=== PATIENT | female | born 1985 | race Caucasian/White ===

== ENCOUNTER → 2017-10-29 13:36 | Outpatient (CLI) | payer MEDICAID, SELFPAY ==
[2017-10-29 17:00] LABS: Glucose Challenge Gest 1H 50g 122 mg/dL (70-140)
[2017-10-29 17:17] LABS: Hematocrit 38.8 % (37-47); Hemoglobin 12.4 g/dl (12.0-15.0); Mean Corpuscular Hgb 26.8 pg (27.0-32.0); Mean Platelet Vol. 12.8 fl (6.2-12.0); Platelet Count 177 K/mm3 (150-450); RBC Distribution Width CV 14.9 % (11.6-14.6); RBC Distribution Width SD 44.6 fl (35.1-43.9); Red Blood Count 4.62 M/mm3 (4.2-5.4); White Blood Count 8.3 K/mm3 (4.4-11.0)
[2017-10-29 17:20] LABS: Scan Indicated on CBC? Y/N NO
== END ==
PROVIDERS: Visit Provider Obstetrics & Gynecology
DX: Z34.83 Encounter for supervision of other normal pregnancy, third trimester (principal)
CPT/HCPCS: 82950; 85027

== ENCOUNTER → 2017-11-05 17:02 | Outpatient (CLI) | payer MEDICAID, SELFPAY | PROVIDERS: Visit Provider Obstetrics & Gynecology | DX: N39.0 Urinary tract infection, site not specified (principal) | CPT/HCPCS: 87086; 87088 ==

== ENCOUNTER → 2017-12-14 09:32 | Outpatient (CLI) | payer MEDICAID, SELFPAY ==
[2017-12-14 09:53] LABS: Hematocrit 34.3 % (37-47); Hemoglobin 10.7 g/dl (12.0-15.0); Mean Corp Hgb Conc 31.2 g/gl (32-36); Mean Corpuscular Hgb 25.3 pg (27.0-32.0); Mean Corpuscular Volume 81.1 fL (81-99); Mean Platelet Vol. 12.9 fl (6.2-12.0); Platelet Count 187 K/mm3 (150-450); RBC Distribution Width CV 14.2 % (11.6-14.6); RBC Distribution Width SD 41.9 fl (35.1-43.9); Red Blood Count 4.23 M/mm3 (4.2-5.4); Scan Indicated on CBC? Y/N NO
[2017-12-14 10:48] LABS: Protein, Urine (Random) 31.2 mg/dL (<11.9)
[2017-12-14 11:02] LABS: ALB/GLOB Ratio 0.7 RATIO (0.9-2.4); AST(SGOT) 19 U/L (15-37); Alanine Aminotransfer ALT/SGPT 17 U/L (13-56); Albumin, Serum 2.7 g/dL (3.2-5.0); Alkaline Phosphatase 102 U/L (45-117); Anion Gap 10 (5-15); BUN 4 mg/dL (7-18); BUN/Creat Ratio 8.8 RATIO (10-20); Calcium,Total 8.2 mg/dL (8.5-10.1); Chloride 108 mmol/L (98-107); Creatinine, Serum 0.46 mg/dL (0.55-1.02); EST Glomerular Filtration Rate 170 mL/min (>60); Est Glom Filt Rate - Afr Amer 205 mL/min (>60); Globulin 3.7 g/dL (2.2-4.2); Glucose 90 mg/dL (74-106); Potassium 3.1 mmol/L (3.5-5.1); Protein, Total 6.4 g/dL (6.4-8.2); Sodium Level 141 mmol/L (136-145)
== END ==
PROVIDERS: Visit Provider Obstetrics & Gynecology
DX: O26.899 Other specified pregnancy related conditions, unspecified trimester (principal); R10.11 Right upper quadrant pain; R51 Headache; Z3A.00 Weeks of gestation of pregnancy not specified
CPT/HCPCS: 36415; 80053; 82570; 84156; 84550; 85027

== ENCOUNTER → 2017-12-30 13:52 | Outpatient (CLI) | payer MEDICAID, SELFPAY ==
[2017-12-30 15:04] LABS: Group B Strep DNA By PCR Negative (Negative); Internal Control PASS; Probe Check PASS; Specimen Processing Control PASS
== END ==
PROVIDERS: Visit Provider Obstetrics & Gynecology
DX: Z36.85 Encounter for antenatal screening for Streptococcus B (principal)
CPT/HCPCS: 87081; 87653

== ENCOUNTER 2017-12-31 07:35 | Inpatient (IN) | payer MEDICAID, SELFPAY ==
[2017-12-31 05:43] VITALS: BMI 38.9
[2017-12-31] MEDS: Lactated Ringers 1,000 ML 50 ML IV ×3 (08:10→21:00)
[2017-12-31 08:35] LABS: Hematocrit 33.1 % (37-47); Hemoglobin 10.5 g/dl (12.0-15.0); Mean Corp Hgb Conc 31.7 g/gl (32-36); Mean Corpuscular Hgb 25.9 pg (27.0-32.0); Mean Corpuscular Volume 81.5 fL (81-99); Mean Platelet Vol. 13.7 fl (6.2-12.0); Platelet Count 160 K/mm3 (150-450); RBC Distribution Width CV 15.3 % (11.6-14.6); RBC Distribution Width SD 43.2 fl (35.1-43.9); Red Blood Count 4.06 M/mm3 (4.2-5.4)
[2017-12-31 08:36] LABS: Scan Indicated on CBC? Y/N NO
[2017-12-31] MEDS: Acetaminophen 325 MG Tablet PO (11:08)
[2017-12-31] MEDS: Oxytocin 30 units/NS 500 ml 30 UNITS/500 ML IV.SOLN IV (11:35)
--- NOTE | 2017-12-31 15:00 | PCM.PN.BLA ---
Progress Note LABOR PROGRESS NOTE No complaints. AVSS GEN - NAD, AAO x 3 FHR 140, moderate variability, + accelerations, no decelerations SVE 4.5-5/75/-2 TOCO 4/10 min A/P: 32yo @ 37 1/7wga in labor with pitocin augmentation, Cat I FHR -Amniotomy performed with clear fluid -Continue pitocin as tolerated by mother and fetus
[2017-12-31] MEDS: fentaNYL-bupivacaine (epidural) 100 ML BAG EPIDURAL (16:10)
--- NOTE | 2017-12-31 18:12 | PCM.PN.BLA ---
Progress Note LABOR PROGRESS NOTE No complaints. Comfortable with epidural. AVSS GEN - NAD, AAO x 3 FHR 130, moderate variability, + late deceleration, non- recurrent SVE 10/100/+1 station per ZHOU Dee TOCO 4/10 min A/P: 32yo @ 37 1/7wga in labor on pitocin, Cat II FHR -Continue pitocin as tolerated by mother and fetus -Continue in second stage with pushing efforts -Maternal and statuses overall reassuring
[2017-12-31 20:00] VITALS: BP 121/64
--- NOTE | 2017-12-31 20:00 | PCM.PN.BLA ---
Progress Note Baseline 135, moderate variability with recurrent variable decelerations with contractions and prolonged deceleration x 4.5 minutes nadiring to 70s bpm. SVE FD/0 station with caput extending to +3. Fetus in OA. [place] 4/ 10 min. ISE placed. Will monitor closely.
[2017-12-31] MEDS: Ondansetron 4 MG/2 ML Vial IV (20:58)
--- NOTE | 2017-12-31 21:13 | PCM.PN.BLA ---
Progress Note LABOR PROGRESS NOTE Relates she is fatigued from pushing. AVSS GEN - NAD, AAO x 3 FHR prolonged deceleration to 70s bpm, recovered to 120, moderate variability, + accelerations, no further decelerations TOCO 4/10 min SVE FD/0 station A/P: 32yo @ 37 1/7wga with arrest of descent, Cat I-II FHR -López Priyanka maneuver performed with no significant descent -Given patient has pushed x approximately 3 hours with almost 1 hour of labor down and fatigue, not candidate for operative vaginal delivery at this time. Advise - reviewed surgical risks including pain, bleeding including possible hematoma, hemorrhage, possible transfusion or hysterectomy, bowel or bladder injury, VTE, ileus, bowel obstruction, scarring, laceration, TTN, allergic reaction. Also discussed continued pushing for additional hour however reviewed my experience an exam suggest unlikely to make significant progress towards vaginal delivery. Patient and family given opportunity to ask questions and questions answered to their satisfaction. Patient desires to proceed. Anesthesiology notified.
[2017-12-31] MEDS: Sodium Citrate/Citric Acid 30 ML UDC PO (21:15)
[2017-12-31] MEDS: Cefazolin 2 GM in 0.9% Normal Saline 100 ML IV (21:25)
--- NOTE | 2017-12-31 21:29 | PN_ITS ---
Progress Note Baseline 135, moderate variability with recurrent variable decelerations with contractions and prolonged deceleration x 4.5 minutes nadiring to 70s bpm. SVE FD/0 station with caput extending to +3. Fetus in OA. [place] 4/ 10 min. ISE placed. Will monitor closely.
[2017-12-31] MEDS: Methylergonovine 0.2 MG/ML Ampul IM (22:15)
--- NOTE | 2017-12-31 23:02 | PCM.IMED.CSR ---
- Problem List (1) 37 weeks gestation of Status: Acute (2) Arrest of descent, delivered, current hospitalization Status: Acute V-Zvccrzl-Ewszznmcv PostOp Date of Procedure: 12/31/17 Primary Surgeon/Physician: Brandy Lopez, manager zone: Nancy Almeida Pre-op Diagnosis: Arrrest of Descent Post-Op Diagnosis: Arrrest of Descent Surgery/Procedure Performed: Primary low transverse Section Description of Surgical Findings:: significant scarring of subcutaneous tissue and lower abdominal cavity. Estimated Blood Loss: 700 mL Specimens Removed: placenta Drain: Ram to straight drain Type of Anesthesia: Epidural - Admit VTE Documentation VTE Present on Admission: No VTE Mechan Device Prophylaxis: SCD's VTE Pharm Prophylaxis ordered?: No
--- NOTE | 2017-12-31 23:07 | OP.PN_ITS ---
- Problem List (1) 37 weeks gestation of Status: Acute (2) Arrest of descent, delivered, current hospitalization Status: Acute J-Vtysnpo-Wsysdwxdg PostOp Date of Procedure: 12/31/17 Primary Surgeon/Physician: Brandy Lopez, personalized living manager nurse: Nancy Almeida Pre-op Diagnosis: Arrrest of Descent Post-Op Diagnosis: Arrrest of Descent Surgery/Procedure Performed: Primary low transverse Section Description of Surgical Findings:: significant scarring of subcutaneous tissue and lower abdominal cavity. Estimated Blood Loss: 700 mL Specimens Removed: placenta Drain: Ram to straight drain Type of Anesthesia: Epidural - Admit VTE Documentation VTE Present on Admission: No VTE Mechan Device Prophylaxis: SCD's VTE Pharm Prophylaxis ordered?: No
--- NOTE | 2017-12-31 23:07 | PCM.OB.CSR ---
- Problem List (1) 37 weeks gestation of Status: Acute (2) Arrest of descent, delivered, current hospitalization Status: Acute Delivery Classification: ANTONIO Final DEMARCO: 01/20/18 Gestational age: 37 Weeks and 1 Days [place] doctor who attended delivery (if requested by OB): Nuvia Malave Indications: 32yo G1 at 37 1/7wga admitted in latent labor. She was augmented with pitocin and progressed to FD/0 station. She pushed for approximately 3 hours with no descent. She was advised to proceed with section. Risks, benefits, indications of procedure were reviewed. Informed consent was obtained. Indications for : Arrrest of Descent Description of Procedure: Significant scarring of subcutaneous tissue and lower abdominal cavity. The patient was taken to the operating room and spinal analgesia was administered. She is placed in a dorsal supine position with left lateral tilt. The perineum and abdomen were prepped and draped in sterile fashion. And the spinal was found to be adequate. A Pfannenstiel incision was made using a scalpel and brought down to incise the subcutaneous tissue and rectus fascia at the midline. Subcutaneous tissue was bluntly dissected off the fascia laterally. The fascial incision was dissected laterally and cephalad using curved Cornejo scissors. The superior leaflet of the rectus fascia was grasped using Monisha clamps and was sharply dissected from the underlying rectus muscle due to significant adhesion and thickening. In a similar fashion the inferior rectus fascia was dissected from the underlying muscle. The rectus muscles were bluntly at the midline however the left rectus was significantly fibrosed thus was transected using the Bovie for adequate exposure. The peritoneum was identified and entered [sharply]. The bladder blade was placed into the abdomen and the vesicouterine peritoneal fold identified. The fold was incised and a bladder flap created. Bladder blade was then repositioned to the abdomen. A low transverse hysterotomy was made using the [Metzenbaum scissors] to level of the membranes. The hysterotomy was extended bluntly cephalad and caudad. The membranes were then ruptured revealing clear fluid. The head was elevated and brought to the level of the hysterotomy and the infant delivered revealing vigorous [male] infant. The cord was doubly clamped and cut after 30 seconds. The infant was passed to awaiting [nursery personnel and Pediatric hospitalist]. The placenta was [expressed] from the uterus and appeared intact on inspection. The uterus was cleared of debris. IV pitocin and IM methergine were given for uterine atony. The hysterotomy was then repaired using 0 Vicryl running lock suture. A second imbricating layer was also placed for additional hemostasis. There was improvement of uterine tone. Henry was placed for additional hemostasis. The bladder blade was removed. The anterior cul-de-sac was cleared of debris. A perforating right inferior epigastric vein was bleeding, this was coagulated with hemostasis attained. The peritoneum and rectus muscles were reapproximated using 2-0 Vicryl running suture. The rectus fascia was closed using 0 Vicryl running suture. The patient complained of right sided pain thus 10cc local 1% lidocaine was administered subcutaneously. The subcutaneous tissue was sponge irrigated and small capillary bleeding controlled using the Bovie device. The subcutaneous tissue was reapproximated using 2-0 Vicryl. The skin was closed using 4-0 Monocryl subcuticularly by the IRISH MOSS BLEACHER. This was followed by Cavilon and a Mepilex occlusive dressing was placed over the incision. The fundus was firm. The patient was then transferred to the recovery room without complication. Sponge, instrument, and needle counts were correct ?2. Amniotic Membrane Rupture Type: Artificial Amniotic Fluid Description: Clear Placenta Disposition: [facility] Specimen(s) sent to pathology: placenta Drain: Ram to straight drain Cord Entanglement: None Cord Vessel Description: 3 Vessels Esitmated Blood Loss (ml): 700 Infant Gender: Male (1 minute): 8 (5 minute): 9 Delayed cord clamping: Yes Pre-op Antibiotic Given: Ancef 2 grams IV x1 Pt instructed on risks of surgery: Bleeding, Anesthesia Risks, Infection, Need for Future C-Sections, Failure Rate of 1 to 2%, Injury to surrounding structure(s) including bowel and bladder Complications: None - Admit VTE Documentation VTE Present on Admission: No VTE Mechan Device Prophylaxis: SCD's VTE Pharm Prophylaxis ordered?: No
--- NOTE | 2017-12-31 23:23 | OP.PCM_ITS ---
- Problem List (1) 37 weeks gestation of Status: Acute (2) Arrest of descent, delivered, current hospitalization Status: Acute Delivery Classification: ANTONIO Final DEMARCO: 01/20/18 Gestational age: 37 Weeks and 1 Days [place] doctor who attended delivery (if requested by OB): Nuvia Malave Indications: 32yo G1 at 37 1/7wga admitted in latent labor. She was augmented with pitocin and progressed to FD/0 station. She pushed for approximately 3 hours with no descent. She was advised to proceed with section. Risks, benefits, indications of procedure were reviewed. Informed consent was obtained. Indications for : Arrrest of Descent Description of Procedure: Significant scarring of subcutaneous tissue and lower abdominal cavity. The patient was taken to the operating room and spinal analgesia was administered. She is placed in a dorsal supine position with left lateral tilt. The perineum and abdomen were prepped and draped in sterile fashion. And the spinal was found to be adequate. A Pfannenstiel incision was made using a scalpel and brought down to incise the subcutaneous tissue and rectus fascia at the midline. Subcutaneous tissue was bluntly dissected off the fascia laterally. The fascial incision was dissected laterally and cephalad using curved Cornejo scissors. The superior leaflet of the rectus fascia was grasped using Monisha clamps and was sharply dissected from the underlying rectus muscle due to significant adhesion and thickening. In a similar fashion the inferior rectus fascia was dissected from the underlying muscle. The rectus muscles were bluntly at the midline however the left rectus was significantly fibrosed thus was transected using the Bovie for adequate exposure. The peritoneum was identified and entered [sharply]. The bladder blade was placed into the abdomen and the vesicouterine peritoneal fold identified. The fold was incised and a bladder flap created. Bladder blade was then repositioned to the abdomen. A low transverse hysterotomy was made using the [Metzenbaum scissors] to level of the membranes. The hysterotomy was extended bluntly cephalad and caudad. The membranes were then ruptured revealing clear fluid. The head was elevated and brought to the level of the hysterotomy and the infant delivered revealing vigorous [male] infant. The cord was doubly clamped and cut after 30 seconds. The infant was passed to awaiting [nursery personnel and Pediatric hospitalist]. The placenta was [ expressed] from the uterus and appeared intact on inspection. The uterus was cleared of debris. IV pitocin and IM methergine were given for uterine atony. The hysterotomy was then repaired using 0 Vicryl running lock suture. A second imbricating layer was also placed for additional hemostasis. There was improvement of uterine tone. Henry was placed for additional hemostasis. The bladder blade was removed. The anterior cul-de-sac was cleared of debris. A perforating right inferior epigastric vein was bleeding, this was coagulated with hemostasis attained. The peritoneum and rectus muscles were reapproximated using 2-0 Vicryl running suture. The rectus fascia was closed using 0 Vicryl running suture. The patient complained of right sided pain thus 10cc local 1% lidocaine was administered subcutaneously. The subcutaneous tissue was sponge irrigated and small capillary bleeding controlled using the Bovie device. The subcutaneous tissue was reapproximated using 2-0 Vicryl. The skin was closed using 4-0 Monocryl subcuticularly by the DEVELOPMENTAL TRAINING COUNSELOR. This was followed by Cavilon and a Mepilex occlusive dressing was placed over the incision. The fundus was firm. The patient was then transferred to the recovery room without complication. Sponge, instrument, and needle counts were correct ?2. Amniotic Membrane Rupture Type: Artificial Amniotic Fluid Description: Clear Placenta Disposition: [facility] Specimen(s) sent to pathology: placenta Drain: Ram to straight drain Cord Entanglement: None Cord Vessel Description: 3 Vessels Esitmated Blood Loss (ml): 700 Gender: Male (1 minute): 8 (5 minute): 9 Delayed cord clamping: Yes Pre-op Antibiotic Given: Ancef 2 grams IV x1 Pt instructed on risks of surgery: Bleeding, Anesthesia Risks, Infection, Need for Future C-Sections, Failure Rate of 1 to 2%, Injury to surrounding structure( s) including bowel and bladder Complications: None - Admit VTE Documentation VTE Present on Admission: No VTE Mechan Device Prophylaxis: SCD's VTE Pharm Prophylaxis ordered?: No
[2017-12-31 23:25] VITALS: BP 121/64; BP 140/82; PULSE 85; RESP 18; TEMP 37.4; O2SAT 98
--- NOTE | 2017-12-31 23:33 | PCM.DCCSEC ---
Discharge Diet: No Restrictions Discharge Activity: Return to Normal Activity, May not drive while taking narcotic pain medications., May Shower May resume sexual activity in: 6 weeks Lifting Restrictions: 10 lb Call your doctor if your incision/area has: Continuous Slow Oozing, Sudden Increased Bleeding Call your doctor if you observe: Fever of 101 or Higher, Inability to urinate, Inability to have a bowel movement, Using more than one pad per hour, Shortness of breath, Chest pain, Calf discomfort, Uncontrolled pain Suture Line Care: Avoid Pulling/Pushing, Avoid Pinching/Bending Additional Instructions: If you experience any of the following, contact your healthcare provider. Bleeding that soaks a pad every hour for 2 hours Fever 100.4 or higher Unrelieved incision or abdominal pain Swelling, redness, discharge or bleeding from your incision or episiotomy site Your incision begins to separate Problems urinating (including inability to urinate or burning while urinating). Visual changes Severe headache Flu-like symptoms Pain or redness in one of both of your breasts Pain, warmth, tenderness or swelling in your legs, especially the calf area Frequent nausea and vomiting Symptoms of depression or anxiety If you experience any of the following, call 911 or go to the nearest Emergency Room. Chest pain Problems breathing Seizure activity Partial or complete paralysis of a body part, slurred speech, weakness or drooping of the face, or a sudden inability to walk or hold your balance Allergies/Adverse Reactions: Allergies citalopram hydrobromide [From Celexa] Allergy (Verified 10/12/17 16:27) Shortness of breath latex Allergy (Verified 10/12/17 16:27) Hives codeine Adverse Reaction (Verified 10/12/17 16:27) Vomiting Medications to take at Discharge Folic Acid 0.4 mg PO DAILY 10/08/17 Nifedipine 10 mg PO Q4H #6 cap 10/13/17 Docusate Sodium [Colace] 100 mg PO BID PRN PRN #60 cap 12/31/17 Naproxen 250 mg PO BID PRN #30 tab 12/31/17 Oxycodone [Oxyir] 1 - 2 tab PO Q4H PRN PRN 3 Days #28 tablet 12/31/17 The following prescriptions were given: Oxycodone [Oxyir] 1 - 2 tab PO Q4H PRN PRN 3 Days #28 tablet PRN Reason: Pain Docusate Sodium [Colace] 100 mg PO BID PRN PRN #60 cap PRN Reason: Constipation Naproxen 250 mg PO BID PRN #30 tab PRN Reason: Pain Follow-Up: Call to make an appointment with your doctor for an incision check in 1-2 weeks. You will also need a 6 week post- follow up appointment. Please Follow Up With: Brandy Loepz MD When: 1 week Primary Care Physician: [facility] ,Out of [Primary Care Provider] -
--- NOTE | 2017-12-31 23:41 | DCINST_ITS ---
Discharge Diet: No Restrictions Discharge Activity: Return to Normal Activity, May not drive while taking narcotic pain medications., May Shower May resume sexual activity in: 6 weeks Lifting Restrictions: 10 lb Call your doctor if your incision/area has: Continuous Slow Oozing, Sudden Increased Bleeding Call your doctor if you observe: Fever of 101 or Higher, Inability to urinate, Inability to have a bowel movement, Using more than one pad per hour, Shortness of breath, Chest pain, Calf discomfort, Uncontrolled pain Suture Line Care: Avoid Pulling/Pushing, Avoid Pinching/Bending Additional Instructions: If you experience any of the following, contact your healthcare provider. * Bleeding that soaks a pad every hour for 2 hours * Fever 100.4 or higher * Unrelieved incision or abdominal pain * Swelling, redness, discharge or bleeding from your incision or episiotomy site * Your incision begins to separate * Problems urinating (including inability to urinate or burning while urinating) . * Visual changes * Severe headache * Flu-like symptoms * Pain or redness in one of both of your breasts * Pain, warmth, tenderness or swelling in your legs, especially the calf area * Frequent nausea and vomiting * Symptoms of depression or anxiety If you experience any of the following, call 911 or go to the nearest Emergency Room. * Chest pain * Problems breathing * Seizure activity * Partial or complete paralysis of a body part, slurred speech, weakness or drooping of the face, or a sudden inability to walk or hold your balance Allergies/Adverse Reactions: Allergies citalopram hydrobromide [From Celexa] Allergy (Verified 10/12/17 16:27) Shortness of breath latex Allergy (Verified 10/12/17 16:27) Hives codeine Adverse Reaction (Verified 10/12/17 16:27) Vomiting Medications to take at Discharge Folic Acid 0.4 mg PO DAILY 10/08/17 Nifedipine 10 mg PO Q4H #6 cap 10/13/17 Docusate Sodium [Colace] 100 mg PO BID PRN PRN #60 cap 12/31/17 Naproxen 250 mg PO BID PRN #30 tab 12/31/17 Oxycodone [Oxyir] 1 - 2 tab PO Q4H PRN PRN 3 Days #28 tablet 12/31/17 The following prescriptions were given: Oxycodone [Oxyir] 1 - 2 tab PO Q4H PRN PRN 3 Days #28 tablet PRN Reason: Pain Docusate Sodium [Colace] 100 mg PO BID PRN PRN #60 cap PRN Reason: Constipation Naproxen 250 mg PO BID PRN #30 tab PRN Reason: Pain Follow-Up: Call to make an appointment with your doctor for an incision check in 1-2 weeks. You will also need a 6 week post- follow up appointment. Please Follow Up With: Brandy Lopez MD When: 1 week Primary Care Physician: [facility] ,Out of [Primary Care Provider] -
[2017-12-31 23:45] VITALS: BP 121/64; BP 138/72; PULSE 95; RESP 20; O2SAT 96
[2018-01-01] VITALS (25 sets, daily range): BP systolic 107–150; BP diastolic 46–92; PULSE 76–108; RESP 15–20; TEMP 36.7–37.6; O2SAT 96–100
[2018-01-01] MEDS: Ketorolac 30 MG/ML Syringe IV ×4 (00:26→18:30)
[2018-01-01 06:10] LABS: Hematocrit 27.3 % (37-47); Hemoglobin 8.8 g/dl (12.0-15.0); Mean Corp Hgb Conc 32.2 g/gl (32-36); Mean Corpuscular Hgb 25.7 pg (27.0-32.0); Mean Corpuscular Volume 79.8 fL (81-99); Mean Platelet Vol. 11.2 fl (6.2-12.0); Platelet Count 132 K/mm3 (150-450); RBC Distribution Width CV 14.8 % (11.6-14.6); RBC Distribution Width SD 42.8 fl (35.1-43.9); Red Blood Count 3.42 M/mm3 (4.2-5.4)
[2018-01-01 06:11] LABS: Scan Indicated on CBC? Y/N NO
[2018-01-01] MEDS: Lactated Ringers 1,000 ML 100 ML IV ×2 (08:32→17:41)
--- NOTE | 2018-01-01 09:19 | PCM.PN.OB ---
Patient Problems: Active and Suspected Problems delivery delivered (Acute) 37 weeks gestation of (Acute) Arrest of descent, delivered, current hospitalization (Acute) Subjective: Patient without complaints. Tolerating diet well. Breast-feeding being attempted. Denies flatus. - Physical Exam Vital Signs AF, VSS Temp Pulse Resp BP Pulse Ox 99.4 F H 108 H 18 115/71 96 01/01/18 05:31 01/01/18 05:31 01/01/18 06:30 01/01/18 05:31 01/01/18 06:30 Oxygen Delivery Method Room Air Weight: 213 lb 2.992 oz Body Mass Index (BMI) 38.9 Intake and Output for Last 24 Hours 12/30/17 12/31/17 01/01/18 23:59 23:59 23:59 Intake Total 450 / 450 1498 / 1498 Output Total 750 / 750 Balance 450 / 450 748 / 748 Laboratory Tests Past 24 Hrs 12/31/17 01/01/18 08:10 05:55 WBC 10.0 RBC 3.42 L Hgb 8.8 L Hct 27.3 L MCV 79.8 L MCH 25.7 L MCHC 32.2 RDW 14.8 H RDW Differential 42.8 Plt Count 132 L MPV 11.2 Blood Type A POSITIVE Antibody Screen NEGATIVE Wound is clean, dry, intact covered by an occlusive dressing. Good urine output. Hemoglobin okay. Medical Necessity - Tobacco Use Smoking Status: Never smoker Assessment/Plan Active and Suspected Problems delivery delivered (Acute) 37 weeks gestation of (Acute) Arrest of descent, delivered, current hospitalization (Acute) Doing well postoperative day #1 . Continuing present care.
--- NOTE | 2018-01-01 14:23 | CASEMGMT ---
Social Work Referral Date: 12/31/17 Date of Assessment: 12/31/17 Reason for Consult: Community Resources and support Informant: Mother of baby (MOB), Father of baby (FOB), Nursing, and chart Personal Status Mentation: (A&Ox3?): MOB oriented x3 Present during assessment: MOB, FOB, and Infant Hx : 3 Hx Para: 0 Gender: M Infant Name: Kar Bernardo (1min): 8 (5min): 9 Care: Adequate Alleged father: Kris Bernardo Alleged father involved: Yes Length of Relationship with alleged father of baby: MOB and FOB have been for 3 years. Number of Children in the home: This is first infant for MOB and FOB Custody Comments: None Living Arrangements: MOB and FOB live in private home. 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 FOB is an EMT but was recently diagnosed with cancer 2 months ago and is currently undergoing treatments in [place], [place]. FOB not working at this time either. MOB and FOB depending on family financially and planning to apply for social security disability but are unable to apply until May. This director social welfare also giving MOB and FOB information about Monae Malik patient navigator. Family Dynamics/Relationships: MOB reporting to have positive supports from both maternal and paternal grandparents and to have a positive relationship with FOB. Supports: MOB reporting to have lots of support. Substance Abuse Hx and Current Pattern of Use Comment: MOB denies any Alcohol, Methamphetamine, Tobacco, Cocaine, Marijuana, Prescriptions Drugs, or Heroin usage. Mental Health Hx and Current Status Comment: MOB denies any history of depression/anxiety. MOB reporting no current depression or anxiety. Items/Skills List for Infants Care Supplies: MOB reporting to have all needed supplies for both breast and bottle feeding. MOB planning to do both as MOB plans to go with FOB to [place] for next chemo treatment and that will be staying with grandparents. Bonding With Infant: MOB and FOB reporting to be bonding with . Observed Maternal/Paternal Child interaction: MOB not holding during assessment but gazing at infant often. FOB holding infant during assessment and showed appropriate support of infants head and body. Emotional Assessment: MOB presenting as tired as could be seen through MOB struggling to keep eyes open during assessment. Offered to return later but MOB was able to then sit up better and wake up to complete assessment. MOB reporting to have not slept much last night. MOB presenting with a positive affect and was engaged in conversation after waking up. FOB was also engaged in conversation. MOB and FOB thanking this socia worker for information about supports in the community for individuals diagnosed with cancer along with other community services this director social welfare provided MOB and FOB with. Emotional support offered throughout assessment. Resources JFS: [facility]: Already connected People to People: N/A Community Action: N/A Help Me Grow: Not interested in a referral at this time. Children Protective Services Hx: N/A Transportation: No transportation concerned expressed . Comments: MOB given information about [facility], safe sleeping, soothing tips and tricks, depression, Help Me Grow. Intervention: None at this time. Plan: Infant to discharge home with MOB and FOB. FOB to begin Chemo treatments again next week. FOB putting Chemo treatments on hold this week to be able to be with MOB and infant. Jia DONIS, PCB DESIGNER
[2018-01-02] MEDS: Ketorolac 30 MG/ML Syringe IV ×4 (00:07→18:17)
--- NOTE | 2018-01-02 01:13 | NURSING ---
Patient up to bathroom, lamas removed, steady on feet, in shower, pericare complete, SCDs, and pulse ox removed. Toradol given patient denies further needs at this time.
[2018-01-02 03:00] VITALS: BP 121/73; PULSE 98; RESP 16; TEMP 36.6; O2SAT 100
--- NOTE | 2018-01-02 07:56 | PCM.PN.OB ---
Patient Problems: Active and Suspected Problems delivery delivered (Acute) 37 weeks gestation of (Acute) Arrest of descent, delivered, current hospitalization (Acute) Subjective: Patient without complaints. Tolerating diet well. Breast-feeding going well. Positive flatus. Desires to stay until tomorrow. - Physical Exam Vital Signs AF, VSS Temp Pulse Resp BP Pulse Ox 98 F 98 16 121/73 H 100 01/02/18 03:00 01/02/18 03:00 01/02/18 03:00 01/02/18 03:00 01/02/18 03:00 Oxygen Delivery Method Room Air Weight: 213 lb 2.992 oz Body Mass Index (BMI) 38.9 Intake and Output for Last 24 Hours 12/31/17 01/01/18 01/02/18 23:59 23:59 23:59 Intake Total 450 / 450 4641 / 4641 Output Total 3150 / 3150 700 / 700 Balance 450 / 450 1491 / 1491 -700 / -700 Good urine output. Medical Necessity - Tobacco Use Smoking Status: Never smoker Assessment/Plan Active and Suspected Problems delivery delivered (Acute) 37 weeks gestation of (Acute) Arrest of descent, delivered, current hospitalization (Acute) Doing well. Continuing present care. Anticipate release tomorrow.
[2018-01-02 08:13] VITALS: BP 117/71; PULSE 108; RESP 18; TEMP 36.7; O2SAT 97
[2018-01-02] MEDS: 0.9% Saline Lock 10 ML Syringe IV ×2 (12:10→18:17)
[2018-01-02 14:29] VITALS: BP 125/72; PULSE 105; RESP 18; TEMP 36.8; O2SAT 100
[2018-01-02 18:23] VITALS: TEMP 37.8
[2018-01-02] MEDS: Acetaminophen 500 MG Tablet 1000 MG PO (18:38)
[2018-01-03 01:05] VITALS: BP 127/78; PULSE 87; RESP 18; TEMP 36.6; O2SAT 98
[2018-01-03] MEDS: Naproxen 250 MG Tablet PO (02:54)
--- NOTE | 2018-01-03 08:15 | PCM.PN.OB ---
Patient Problems: Active and Suspected Problems 37 weeks gestation of (Acute) Arrest of descent, delivered, current hospitalization (Acute) Subjective: doing well. OOB and ambulating without difficulty. Had a bowel movement. Lochia scant. No complaints. Objective: AVSS - Physical Exam General: Alert, Oriented x3, Cooperative, No apparent distress HEENT: Atraumatic, Normocephalic Lungs: Clear to auscultation, Normal air movement Cardiovascular: Regular rate, Regular Rhythm, Normal S1, Normal S2 Abdomen: Bowel Sounds Present, Soft, Non Tender, Non-Distended, - - Incision c/d/i and nontender Extremities: No edema, No Calf Tenderness Neurological: Neuro grossly intact Psych/Mental Status: Normal Affect, Appropriate, Alert and oriented to time, place, person, mood and affect Vital Signs Temp Pulse Resp BP Pulse Ox 97.8 F 91 18 127/78 H 99 01/03/18 09:00 01/03/18 09:00 01/03/18 09:00 01/03/18 09:00 01/03/18 09:00 Oxygen Delivery Method Room Air Weight: 96.7 kg Body Mass Index (BMI) 38.9 Intake and Output for Last 24 Hours 01/01/18 01/02/18 01/03/18 23:59 23:59 23:59 Intake Total 4641 / 4641 Output Total 3150 / 3150 1300 / 1300 Balance 1491 / 1491 -1300 / -1300 Medical Necessity - Tobacco Use Smoking Status: Never smoker Assessment/Plan Active and Suspected Problems 37 weeks gestation of (Acute) Arrest of descent, delivered, current hospitalization (Acute) 32yo POD#3 s/p PLTCS doing well. -Rh positive -Rubella immune - -d/c home today
[2018-01-03 09:00] VITALS: BP 127/78; PULSE 91; RESP 18; TEMP 36.6; O2SAT 99
--- NOTE | 2018-01-03 11:19 | PN.OBGYN_ITS ---
Patient Problems: Active and Suspected Problems 37 weeks gestation of (Acute) Arrest of descent, delivered, current hospitalization (Acute) Subjective: doing well. OOB and ambulating without difficulty. Had a bowel movement. Lochia scant. No complaints. Objective: AVSS - Physical Exam General: Alert, Oriented x3, Cooperative, No apparent distress HEENT: Atraumatic, Normocephalic Lungs: Clear to auscultation, Normal air movement Cardiovascular: Regular rate, Regular Rhythm, Normal S1, Normal S2 Abdomen: Bowel Sounds Present, Soft, Non Tender, Non-Distended, - - Incision c/d /i and nontender Extremities: No edema, No Calf Tenderness Neurological: Neuro grossly intact Psych/Mental Status: Normal Affect, Appropriate, Alert and oriented to time, place, person, mood and affect Vital Signs Temp Pulse Resp BP Pulse Ox 97.8 F 91 18 127/78 H 99 01/03/18 09:00 01/03/18 09:00 01/03/18 09:00 01/03/18 09:00 01/03/18 09:00 Oxygen Delivery Method Room Air Weight: 96.7 kg Body Mass Index (BMI) 38.9 Intake and Output for Last 24 Hours 01/01/18 01/02/18 01/03/18 23:59 23:59 23:59 Intake Total 4641 / 4641 Output Total 3150 / 3150 1300 / 1300 Balance 1491 / 1491 -1300 / -1300 Medical Necessity - Tobacco Use Smoking Status: Never smoker Assessment/Plan Active and Suspected Problems 37 weeks gestation of (Acute) Arrest of descent, delivered, current hospitalization (Acute) 32yo POD#3 s/p PLTCS doing well. -Rh positive -Rubella immune - -d/c home today
--- NOTE | 2018-01-03 11:19 | PCM.DC.SUM ---
Discharge Date and Diagnosis - Problem List Patient Problems: Active and Suspected Problems 37 weeks gestation of (Acute) Arrest of descent, delivered, current hospitalization (Acute) Date of Admission: 01/01/17 Date of Discharge: 01/03/18 - Primary Discharge Diagnosis Active and Suspected Problems 37 weeks gestation of (Acute) Arrest of descent, delivered, current hospitalization (Acute) - Secondary Discharge Diagnosis Chronic Problems Hypercoagulable state (Chronic) Hospital Course and Treatment Operations: - - section Summary of Care Provided: The patient is a 32 year old F 1 admitted at 37 1/7 weeks gestation in latent labor. She received pitocin augmentation and progressed to FD. She underwent section for arrest of descent. Her post-operative course was unremarkable. She was discharged to home on post-op day #3. Discharge Diet: No Restrictions Discharge Activity: Return to Normal Activity, May not drive while taking narcotic pain medications., May Shower May resume sexual activity in: 6 weeks Call your doctor if your incision/area has: Continuous Slow Oozing, Sudden Increased Bleeding Call your doctor if you observe: Fever of 101 or Higher, Inability to urinate, Inability to have a bowel movement, Using more than one pad per hour, Shortness of breath, Chest pain, Calf discomfort, Uncontrolled pain Suture Line Care: Avoid Pulling/Pushing, Avoid Pinching/Bending Home Medications: Medications to take at Discharge Folic Acid 0.4 mg PO DAILY 10/08/17 Nifedipine 10 mg PO Q4H #6 cap 10/13/17 Docusate Sodium [Colace] 100 mg PO BID PRN PRN #60 cap 12/31/17 Naproxen 250 mg PO BID PRN #30 tab 12/31/17 Oxycodone [Oxyir] 1 - 2 tab PO Q4H PRN PRN 3 Days #28 tablet 12/31/17 Following Prescrptions Were Given to Patient: Oxycodone [Oxyir] 1 - 2 tab PO Q4H PRN PRN 3 Days #28 tablet PRN Reason: Pain Docusate Sodium [Colace] 100 mg PO BID PRN PRN #60 cap PRN Reason: Constipation Naproxen 250 mg PO BID PRN #30 tab PRN Reason: Pain Primary Care Physician: [facility] ,Out of [Primary Care Provider] - Please Follow Up With: Brandy Lopez MD When: 1 week Medical Necessity - Tobacco Use Smoking Status: Never smoker Tobacco Use: Non-smoker Meaningful Use Info Meaningful Use Diagnoses (Choose all that apply): None applicable
[2018-01-03 12:19] VITALS: BP 128/79; PULSE 91; RESP 16; TEMP 36.9; O2SAT 100
--- NOTE | 2018-01-03 13:00 | DCINST_ITS ---
Discharge Diet: No Restrictions Discharge Activity: Return to Normal Activity, May not drive while taking narcotic pain medications., May Shower May resume sexual activity in: 6 weeks Call your doctor if your incision/area has: Continuous Slow Oozing, Sudden Increased Bleeding Call your doctor if you observe: Fever of 101 or Higher, Inability to urinate, Inability to have a bowel movement, Using more than one pad per hour, Shortness of breath, Chest pain, Calf discomfort, Uncontrolled pain Suture Line Care: Avoid Pulling/Pushing, Avoid Pinching/Bending Additional Instructions: If you experience any of the following, contact your healthcare provider. * Bleeding that soaks a pad every hour for 2 hours * Fever 100.4 or higher * Unrelieved incision or abdominal pain * Swelling, redness, discharge or bleeding from your incision or episiotomy site * Your incision begins to separate * Problems urinating (including inability to urinate or burning while urinating) . * Visual changes * Severe headache * Flu-like symptoms * Pain or redness in one of both of your breasts * Pain, warmth, tenderness or swelling in your legs, especially the calf area * Frequent nausea and vomiting * Symptoms of depression or anxiety If you experience any of the following, call 911 or go to the nearest Emergency Room. * Chest pain * Problems breathing * Seizure activity * Partial or complete paralysis of a body part, slurred speech, weakness or drooping of the face, or a sudden inability to walk or hold your balance Take a multivitamin daily. Allergies/Adverse Reactions: Allergies citalopram hydrobromide [From Celexa] Allergy (Verified 10/12/17 16:27) Shortness of breath latex Allergy (Verified 10/12/17 16:27) Hives codeine Adverse Reaction (Verified 10/12/17 16:27) Vomiting Medications to take at Discharge Docusate Sodium [Colace] 100 mg PO BID PRN PRN #60 cap 12/31/17 Naproxen 250 mg PO BID PRN #30 tab 12/31/17 Oxycodone [Oxyir] 1 - 2 tab PO Q4H PRN PRN 3 Days #28 tablet 12/31/17 The following prescriptions were given: Oxycodone [Oxyir] 1 - 2 tab PO Q4H PRN PRN 3 Days #28 tablet PRN Reason: Pain Docusate Sodium [Colace] 100 mg PO BID PRN PRN #60 cap PRN Reason: Constipation Naproxen 250 mg PO BID PRN #30 tab PRN Reason: Pain Follow-Up: Call to make an appointment with your doctor for an incision check in 1-2 weeks. You will also need a 6 week post- follow up appointment. Primary Care Physician: [facility],Out of [Primary Care Provider] -
== END 2018-01-03 13:20 | disposition home or self-care (01) | DRG 371 ==
LOC: WPOUT 07:42
PROVIDERS: Admitting Provider Obstetrics & Gynecology; Visit Provider Obstetrics & Gynecology
DX: O62.1 Secondary uterine inertia (principal); E72.12 Methylenetetrahydrofolate reductase deficiency; O76 Abnormality in fetal heart rate and rhythm complicating labor and delivery; O99.284 Endocrine, nutritional and metabolic diseases complicating childbirth; O62.2 Other uterine inertia; Z3A.37 37 weeks gestation of pregnancy; Z37.0 Single live birth; Z36.85 Encounter for antenatal screening for Streptococcus B
CPT/HCPCS: 59025; 59050; 85027; 86850; 86900; 87081; 87653; 99218; J7120; A4216; G0378; J2405

== ENCOUNTER 2018-01-13 15:05 | Outpatient (CLI) | payer MEDICAID, SELFPAY | END 2018-01-13 15:10 | disposition home or self-care (01) | LOC: WPOUT 15:11 → WP 15:12 | PROVIDERS: Visit Provider Obstetrics & Gynecology | DX: Z71.89 Other specified counseling (principal) | CPT/HCPCS: 96152 ==

== ENCOUNTER 2018-06-29 08:55 | Outpatient (CLI) | payer MEDICAID, SELFPAY | END 2018-06-29 09:40 | disposition home or self-care (01) | LOC: WPOUT 09:01 → WP 09:01 | PROVIDERS: Referring Provider Obstetrics & Gynecology; Visit Provider Obstetrics & Gynecology | DX: Z39.1 Encounter for care and examination of lactating mother (principal) | CPT/HCPCS: 96152 ==

== ENCOUNTER → 2019-11-14 | Outpatient (CLI) | payer MEDICAID, SELFPAY ==
[2019-11-14 14:17] LABS: Vitamin D,25 Hydroxy 17.4 ng/mL (29.95-100.01)
[2019-11-14 14:18] LABS: Free T3 2.8 pg/mL (2.18-3.98); T4 Free Direct 0.78 ng/dL (0.76-1.46); Thyroid Stim Hormone (TSH) 0.85 uIU/mL (0.358-3.74)
[2019-11-17 16:08] LABS: HPV Genotype 16, Aptima Positive (Negative)
[2019-11-17 16:49] LABS: HPV APTIMA, High Risk Positive (Negative); HPV Genotype 18,45 Aptima Negative (Negative)
== END | disposition home or self-care (01) ==
LOC: LABSPEC 10:08
PROVIDERS: Referring Provider Obstetrics & Gynecology; Visit Provider Obstetrics & Gynecology
DX: E55.9 Vitamin D deficiency, unspecified (principal); R53.83 Other fatigue; Z12.4 Encounter for screening for malignant neoplasm of cervix
CPT/HCPCS: 36415; 82306; 84439; 84443; 84481; 87624; 88175; G0145

== ENCOUNTER → 2019-12-07 | Outpatient (CLI) | payer MEDICAID, SELFPAY ==
--- NOTE | 2019-12-07 | ECC_PTH ---
PATIENT: ISMAEL MYLES [id number] AGE/SX: 34/F ROOM: RE12/07/[address]: Dr. Brandy Juan MD : [id number] BED: DIS: 12/07/2019 SPEC #: [id number] RECD: 12/07/19 18:00 STATUS: CHELITA YANCI #: [id number] SILVINO: 12/07/19 00:[address]: Brandy Wilson DEPT: SURGICAL PATHOLOGY RECD BY: Jose Daniel Lei ENTERED: 12/08/19 10:09 SP TYPE: RITA HERNÁNDEZ DR: Makayla Primary Care Phys Tissues: Endocervical Procedures: Surgery Specimen Level IV HEADER OPERATION: Colposcopy PRE-OP DIAGNOSIS: Positive HR/HPV, LMP 11/27/19 TISSUE SUBMITTED: RITA MICROSCOPIC DIAGNOSIS Endocervix, curettings: Fragments of benign superficial endocervix. Fragments of benign squamous mucosa. AM:gustavo 12/11/19 MICROSCOPIC DESCRIPTION Slides are reviewed. GROSS DESCRIPTION Received in fixative is one container labeled with the patient's name and designated ECC. The specimen consists of multiple irregular fragments of zeng mucoid tissue that in aggregate measure 3 x 2.5 x 0.1 cm. The specimen is totally submitted in one cassette. / SJ:gustavo 12/08/19 TC:5 CPT: 29375
== END | disposition home or self-care (01) ==
LOC: LABSPEC 12-08 07:48
PROVIDERS: Referring Provider Obstetrics & Gynecology; Visit Provider Obstetrics & Gynecology
DX: R87.810 Cervical high risk human papillomavirus (HPV) DNA test positive (principal)
CPT/HCPCS: 88305

== ENCOUNTER → 2020-02-27 15:15 | Outpatient (CLI) | payer MEDICAID, OTHER, SELFPAY ==
[2020-02-27 23:38] LABS: hCG Titer Quant., Serum 2342 mIU/mL (1-3)
[2020-02-28 01:57] LABS: Chlamydia Trachomatis by PCR Negative (Negative); Neisserai gonorrhoeae by PCR Negative (Negative); Probe Check PASS; Sample Adequacy Control PASS; Specimen Processing Control PASS
== END ==
PROVIDERS: Visit Provider Obstetrics & Gynecology
DX: Z11.3 Encounter for screening for infections with a predominantly sexual mode of transmission (principal)
CPT/HCPCS: 84702; 87491; 87591

== ENCOUNTER → 2020-02-29 | Outpatient (CLI) | payer MEDICAID, OTHER, SELFPAY ==
[2020-02-29 11:53] LABS: hCG Titer Quant., Serum 4042 mIU/mL (1-3)
== END | disposition home or self-care (01) ==
LOC: WOBLAB 09:06
PROVIDERS: Visit Provider Obstetrics & Gynecology
DX: Z32.00 Encounter for pregnancy test, result unknown (principal); Z11.3 Encounter for screening for infections with a predominantly sexual mode of transmission
CPT/HCPCS: 36415; 84702

== ENCOUNTER → 2020-03-08 | Outpatient (CLI) | payer MEDICAID, SELFPAY ==
[2020-03-08 17:26] LABS: Absolute Lymphocyte Count 1.91 X10^3/uL (0.83-4.51); Absolute Neutrophil Count 6.6 X10^3/uL (2.0-7.7); Basophil# 0.03 X10^3/uL; Basophil% 0.3 % (0-1); Eosinophil# 0.04 X10^3/uL; Eosinophils% 0.4 % (0-5); Hematocrit 39.2 % (37-47); Hemoglobin 12.5 g/dL (12.0-15.0); Lymphocyte # 1.91 X10^3/ul (4.0); Lymphocyte % 20.7 % (19-41); Mean Corp Hgb Conc 31.9 g/dL (32-36); Mean Corpuscular Hgb 26.1 pg (27.0-32.0); Mean Corpuscular Volume 81.8 fL (81-99); Mean Platelet Vol. 11.5 fl (6.2-12.0); Monocyte% 6.5 % (0-10); NRBC Flagged by Analyzer 0 % (0-5); Neutrophil # 6.61 X10^3/uL (2.7-7.7); Neutrophil % 71.8 % (47-70); Platelet Count 311 K/mm3 (150-450); RBC Distribution Width CV 15.2 % (11.6-14.6); RBC Distribution Width SD 44.3 fl (35.1-43.9); Red Blood Count 4.79 M/mm3 (4.2-5.4); White Blood Count 9.2 K/mm3 (4.4-11.0)
[2020-03-08 17:32] LABS: Color, Urine Yellow (Yellow); Glucose, Dipstick Normal (Normal); Ketone-Dipstick Negative (Negative); Leukocyte Esterase-Dipstick Negative /ul (Negative); Nitrite-Dipstick Negative (Negative); Occult Blood-Urine Negative /ul (Negative); Protein-Dipstick Negative (Negative); Specific Gravity, Urine 1.025 (1.002-1.030); Urine Bilirubin Dipstick Negative (Negative); Urine Clarity Sl. Cloudy (Clear); Urine Urobilinogen Normal (Normal)
[2020-03-08 18:25] LABS: Thyroid Stim Hormone (TSH) 1.05 uIU/mL (0.358-3.74)
[2020-03-08 18:28] LABS: Amphetamine Urine VISTA NEGATIVE (<1000 ng/mL); Barbiturate Urine VISTA NEGATIVE (< 200 ng/mL); Benzodiazepine Urine VISTA NEGATIVE (< 200 ng/mL); Cocaine Urine VISTA NEGATIVE (< 300 ng/mL); Ecstacy Urine VISTA NEGATIVE (< 500 ng/mL); Methadone Urine VISTA NEGATIVE (< 300 ng/mL); PCP Urine VISTA NEGATIVE (< 25 ng/mL); THC Urine VISTA NEGATIVE (< 50 ng/mL); Vista UDS pH Range 6
[2020-03-11 09:55] LABS: HIV - WCH Non-Reactive (Nonreactive); Hepatitis B Surface Antigen Non-Reactive (Nonreactive); Hepatitis C Antibody Non-Reactive (Nonreactive); Rubella IgG 125.7 IU/mL
[2020-03-14 01:57] LABS: Prenatal RPR NONREACTIVE (NONREACTIVE)
== END | disposition home or self-care (01) ==
LOC: LABSPEC 16:29
PROVIDERS: Visit Provider Obstetrics & Gynecology
DX: Z34.81 Encounter for supervision of other normal pregnancy, first trimester (principal)
CPT/HCPCS: 36415; 80307; 81002; 84443; 85025; 86703; 86762; 86803; 87340

== ENCOUNTER → 2020-04-29 | Outpatient (CLI) | payer MEDICAID, SELFPAY | END | disposition home or self-care (01) | LOC: LABSPEC 14:25 | PROVIDERS: Visit Provider Obstetrics & Gynecology | DX: N39.0 Urinary tract infection, site not specified (principal) | CPT/HCPCS: 87086; 87088 ==

== ENCOUNTER → 2020-05-07 | Outpatient (CLI) | payer MEDICAID, SELFPAY ==
[2020-05-07 16:06] LABS: AST(SGOT) 10 U/L (15-37); Alanine Aminotransfer ALT/SGPT 19 U/L (13-56); Albumin, Serum 3.2 g/dL (3.2-5.0); Alkaline Phosphatase 65 U/L (45-117); Bilirubin, Direct 0.08 mg/dL (0.00-0.30); Globulin 4.1 g/dL (2.2-4.2); Protein, Total 7.3 g/dL (6.4-8.2)
[2020-05-10 03:07] LABS: AFP MoM Value 1.11 (.); AFP Value-EIA 25.2 ng/mL (.); Comment Report (.); DIA MoM Value 0.79 (.); DSR (By Age) 345 (.); DSR (Second Trimester) 1659 (.); Gestat. Age Based On As provided (.); Gestational Age 15.1 WEEKS (.); Insulin Dep Diabetes No (.); Maternal Age At EDD 34.3 yr (.); hCG MoM 1.04 (.); hCG Value 46120 mIU/mL (.)
== END | disposition home or self-care (01) ==
LOC: WOBLAB 14:54
PROVIDERS: Visit Provider Obstetrics & Gynecology
DX: O99.712 Diseases of the skin and subcutaneous tissue complicating pregnancy, second trimester (principal); L50.9 Urticaria, unspecified; Z3A.00 Weeks of gestation of pregnancy not specified
CPT/HCPCS: 36415; 80076; 82105; 82677; 84702

== ENCOUNTER → 2020-07-15 | Outpatient (CLI) | payer MEDICAID, SELFPAY ==
[2020-07-15 12:05] LABS: ROM Internal Control Test YES-OK TO RESULT pt. (Internal QC); ROM Patient Test Negative (Negative)
== END | disposition home or self-care (01) ==
LOC: LABSPEC 11:39
PROVIDERS: Visit Provider Obstetrics & Gynecology
DX: Z34.82 Encounter for supervision of other normal pregnancy, second trimester (principal)
CPT/HCPCS: 84112

== ENCOUNTER → 2020-07-26 | Outpatient (CLI) | payer MEDICAID, SELFPAY ==
[2020-07-26 11:49] LABS: ROM Internal Control Test YES-OK TO RESULT pt. (Internal QC)
[2020-07-26 11:56] LABS: ROM Patient Test Negative (Negative)
== END | disposition home or self-care (01) ==
LOC: LABSPEC 11:24
PROVIDERS: Visit Provider Obstetrics & Gynecology
DX: O34.82 Maternal care for other abnormalities of pelvic organs, second trimester (principal); Z3A.00 Weeks of gestation of pregnancy not specified
CPT/HCPCS: 84112

== ENCOUNTER 2020-07-29 13:15 | Outpatient (CLI) | payer MEDICAID, SELFPAY ==
[2020-07-29 14:52] VITALS: BP 119/71; PULSE 78
[2020-07-29 15:02] VITALS: BMI 41.1
[2020-07-29 16:28] VITALS: BP 125/73; PULSE 93
--- NOTE | 2020-07-29 17:26 | OB.TRI.PN ---
Progress Notes Date of Service: 07/29/20 Progress Note: CC: contractions HPI: 35 yo at 27/0 presenting with contractions. No LOF, VB. +FM. States she was doubled over earlier. Declined tylenol in triage for pain. Improved with procardia. complicated by: contractions on procardia 10 mg q6h, MTHFR double heterozygote, PAI1 mutation OB Hx: G1: 2015 SAB D&C G2: 2016 SAB D&C G3: 27w c/s G4: Current Medical Hx: Surgical Hx: D&C, LSO, dx laparoscopy, laparotomy, cholecystectomy, section Allergies: celexa, codeine, latex Medications: procardia, PNV, lovenox PE: Vital Signs Pulse BP 07/29/20 16:28 93 125/73 H 07/29/20 14:52 78 119/71 Per RN Pt more comfortable after procardia dose CE FT/th/high x2 2 hours apart FHR: 140/mod misael/+accel/no decel [place]: rare 20 second ctx REACTIVE A/p: 35 yo at 27/0 presenting with contractions. Not in labor. status reassuring. Plan to continue procardia - refilled. Pt has apt in office Wednesday. Discharge home with precautions.
== END 2020-07-29 16:30 | disposition home or self-care (01) ==
LOC: WPOUT 13:21 → OBT 13:22
PROVIDERS: Referring Provider Student in an Organized Health Care Education/Training Program; Visit Provider Student in an Organized Health Care Education/Training Program
DX: Z34.82 Encounter for supervision of other normal pregnancy, second trimester (principal)
CPT/HCPCS: 59025; 59050; 99218; G0378

== ENCOUNTER → 2020-07-30 | Outpatient (CLI) | payer MEDICAID, SELFPAY ==
[2020-07-29 15:02] VITALS: BMI 41.1
[2020-07-30 09:37] LABS: Mucous, Urine 0 SEEN /hpf (<or=2+); Red Blood Cells-Urine 0 SEEN /hpf (0-5)
[2020-07-30 09:46] LABS: Hematocrit 34.4 % (37-47); Hemoglobin 10.6 g/dL (12.0-15.0); Mean Corp Hgb Conc 30.8 g/dL (32-36); Mean Corpuscular Hgb 25.8 pg (27.0-32.0); Mean Corpuscular Volume 83.7 fL (81-99); Platelet Count 220 K/mm3 (150-450); RBC Distribution Width CV 14.6 % (11.6-14.6); RBC Distribution Width SD 44.6 fl (35.1-43.9); Red Blood Count 4.11 M/mm3 (4.2-5.4); White Blood Count 9.6 K/mm3 (4.4-11.0)
[2020-07-30 09:51] LABS: Color, Urine Yellow (Yellow); Glucose, Dipstick Normal (Normal); Ketone-Dipstick Negative (Negative); Leukocyte Esterase-Dipstick 25 /ul (Negative); Nitrite-Dipstick Negative (Negative); Occult Blood-Urine Negative /ul (Negative); Protein-Dipstick 15 mg/dl (Negative); Urine Bilirubin Dipstick Negative (Negative); Urine Clarity Clear (Clear); Urine Urobilinogen Normal (Normal)
[2020-07-30 09:58] LABS: ALB/GLOB Ratio 0.7 RATIO (0.9-2.4); AST(SGOT) 8 U/L (15-37); Alanine Aminotransfer ALT/SGPT 14 U/L (13-56); Albumin, Serum 2.7 g/dL (3.2-5.0); Alkaline Phosphatase 71 U/L (45-117); Anion Gap 7 (5-15); BUN 5 mg/dL (7-18); BUN/Creat Ratio 9.5 RATIO (10-20); Calcium,Total 8.6 mg/dL (8.5-10.1); Chloride 108 mmol/L (98-107); Creatinine, Serum 0.53 mg/dL (0.55-1.02); EST Glomerular Filtration Rate 142 mL/min (>60); Est Glom Filt Rate - Afr Amer 171 mL/min (>60); Glucose 89 mg/dL (74-106); Glucose Challenge Gest 1H 50g 89 mg/dL (70-140); Potassium 3.4 mmol/L (3.5-5.1); Protein, Total 6.7 g/dL (6.4-8.2); Sodium Level 140 mmol/L (136-145); Uric Acid 3.8 mg/dL (2.6-6.0)
[2020-07-30 10:01] LABS: Protein, Urine (Random) 25.3 mg/dL (<11.9); Protein:Creat Ratio 166 mg/g CRE (0-200)
[2020-07-30 10:06] LABS: Bacteria 1+ /hpf (None Seen); Squamous Epithelial Cells - UA 5-10 SEEN /hpf (5-10); White Blood Cells 0-5 SEEN /hpf (0-5)
[2020-07-30 10:14] LABS: Fetal Fibronectin Negative
[2020-07-31 09:05] LABS: Ferritin 7 ng/mL (8-252); Iron 39 ug/dL (50-170); Iron Binding Capacity,Total 441 ug/dL (250-450)
== END | disposition home or self-care (01) ==
LOC: WOBLAB 08:46
PROVIDERS: Visit Provider Obstetrics & Gynecology
DX: O99.012 Anemia complicating pregnancy, second trimester (principal); D64.9 Anemia, unspecified; Z3A.00 Weeks of gestation of pregnancy not specified
CPT/HCPCS: 36415; 80053; 81001; 82570; 82728; 82731; 82950; 83540; 83550; 84156; 84550; 85027; 87086; 87088

== ENCOUNTER 2020-08-06 04:46 | Outpatient (CLI) | payer MEDICAID, SELFPAY ==
[2020-08-06 05:07] VITALS: BP 126/66; TEMP 36.4
[2020-08-06 05:08] VITALS: PULSE 98; O2SAT 97
[2020-08-06 05:15] VITALS: BMI 40.0
--- NOTE | 2020-08-06 05:55 | PCM.PN.BLA ---
Progress Note CC: Contractions HPI: 35 yo at 28/1w presenting with contractions. Started last night, worsened around 2 AM. States that she was doubled over and that she vomited due to pain. Reports some pelvic pressure. +FM. Denies LOF, VB. Denies DURAN, vision change, chest pain,dyspnea, nausea/emesis complicated by: contractions (was on procardia, but stopped) had negative FFN 07/30 last, double heterozygotes MTHFR and pAI1 mutation on lovenox. OB Hx: 2015 37w Medical Hx: double heterozygotes MTHFR and pAI1 mutation on lovenox Surgical Hx: cholecystectomy, D&C, LSO, dx laparoscopy, laparotomy, c/s Medications: iron, PNV, lovenox Social: denies drugs, alcohol, tobacco ROS: negative aside from noted above PE: Vital Signs Temp Pulse BP Pulse Ox 08/06/20 05:08 98 97 08/06/20 05:07 97.5 F L 126/66 H GEN: NAD, comfortable in bed CARDIORESP: no increased effort ABDOMEN: soft, NT, gravid EXT: no edema CE: FT/30/-3 FHR: 135/mod misael/+Accel/no decel [place]: quiet BSUS breech A/P: 35 yo at 28/1w presenting with contractions. -Observe in triage, recheck 2hr -FFN sent -LR bolus STROKE Vital Signs/Narrative: Vital Signs Temp Pulse BP Pulse Ox 08/06/20 05:08 98 97 08/06/20 05:07 97.5 F L 126/66 H
[2020-08-06 06:03] LABS: Fetal Fibronectin Negative
[2020-08-06] MEDS: Lactated Ringers 1,000 ML 999 ML IV (06:09)
[2020-08-06 07:10] VITALS: TEMP 36.4
[2020-08-06 07:13] VITALS: BP 107/55; PULSE 80
== END 2020-08-06 08:15 | disposition home or self-care (01) ==
LOC: WPOUT 04:53 → WP 08-07 08:18
PROVIDERS: Referring Provider Student in an Organized Health Care Education/Training Program; Visit Provider Student in an Organized Health Care Education/Training Program
DX: O60.03 Preterm labor without delivery, third trimester (principal); Z3A.28 28 weeks gestation of pregnancy
CPT/HCPCS: 96360; 59025; 59050; 76815; 82731; 99218; J7120; G0378

== ENCOUNTER → 2020-08-14 11:02 | Outpatient (CLI) | payer MEDICAID, SELFPAY ==
[2020-08-06 05:15] VITALS: BMI 40.0
[2020-08-14 14:15] LABS: Hematocrit 34.7 % (37-47); Hemoglobin 10.7 g/dL (12.0-15.0); Mean Corp Hgb Conc 30.8 g/dL (32-36); Mean Corpuscular Hgb 25.8 pg (27.0-32.0); Mean Corpuscular Volume 83.8 fL (81-99); Mean Platelet Vol. 12.8 fl (6.2-12.0); Platelet Count 222 K/mm3 (150-450); RBC Distribution Width CV 14.6 % (11.6-14.6); RBC Distribution Width SD 44.1 fl (35.1-43.9); Red Blood Count 4.14 M/mm3 (4.2-5.4); White Blood Count 9.4 K/mm3 (4.4-11.0)
[2020-08-14 14:26] LABS: Protein, Urine (Random) 37.6 mg/dL (<11.9); Protein:Creat Ratio 167 mg/g CRE (0-200)
[2020-08-14 14:28] LABS: ALB/GLOB Ratio 0.7 RATIO (0.9-2.4); AST(SGOT) 9 U/L (15-37); Alanine Aminotransfer ALT/SGPT 16 U/L (13-56); Albumin, Serum 2.8 g/dL (3.2-5.0); Alkaline Phosphatase 85 U/L (45-117); Anion Gap 8 (5-15); BUN 5 mg/dL (7-18); BUN/Creat Ratio 9.2 RATIO (10-20); Calcium,Total 8.6 mg/dL (8.5-10.1); Chloride 108 mmol/L (98-107); Creatinine, Serum 0.54 mg/dL (0.55-1.02); EST Glomerular Filtration Rate 137 mL/min (>60); Est Glom Filt Rate - Afr Amer 166 mL/min (>60); Globulin 4.1 g/dL (2.2-4.2); Glucose 84 mg/dL (74-106); Potassium 3.2 mmol/L (3.5-5.1); Protein, Total 6.9 g/dL (6.4-8.2); Sodium Level 141 mmol/L (136-145); Uric Acid 4.7 mg/dL (2.6-6.0)
== END ==
PROVIDERS: Visit Provider Obstetrics & Gynecology
DX: O13.9 Gestational [pregnancy-induced] hypertension without significant proteinuria, unspecified trimester (principal); Z3A.00 Weeks of gestation of pregnancy not specified
CPT/HCPCS: 36415; 80053; 82570; 84156; 84550; 85027

== ENCOUNTER 2020-08-16 12:10 | Outpatient (CLI) | payer MEDICAID, SELFPAY ==
[2020-08-16] VITALS (19 sets, daily range): BP systolic 119–131; BP diastolic 57–80; PULSE 84–106; RESP 17–20; TEMP 35.6–36.9; O2SAT 93–99; BMI 40.6
[2020-08-16 14:40] LABS: Hematocrit 35.2 % (37-47); Hemoglobin 10.9 g/dL (12.0-15.0); Mean Corpuscular Hgb 25.8 pg (27.0-32.0); Mean Corpuscular Volume 83.2 fL (81-99); Mean Platelet Vol. 12.2 fl (6.2-12.0); Platelet Count 214 K/mm3 (150-450); RBC Distribution Width CV 14.5 % (11.6-14.6); RBC Distribution Width SD 43.8 fl (35.1-43.9); Red Blood Count 4.23 M/mm3 (4.2-5.4); White Blood Count 9.8 K/mm3 (4.4-11.0)
[2020-08-16 14:42] LABS: Protein, Urine (Random) 31.2 mg/dL (<11.9); Protein:Creat Ratio 193 mg/g CRE (0-200)
[2020-08-16 14:58] LABS: AST(SGOT) 10 U/L (15-37); Alanine Aminotransfer ALT/SGPT 15 U/L (13-56); Creatinine, Serum 0.44 mg/dL (0.55-1.02); EST Glomerular Filtration Rate 173 mL/min (>60); Est Glom Filt Rate - Afr Amer 209 mL/min (>60); Estimated Creatinine Clearance 142.49 ml/min; Uric Acid 3.9 mg/dL (2.6-6.0)
--- NOTE | 2020-08-16 17:30 | OB.TRI.NOTE ---
- Problem List (1) 29 weeks gestation of Status: Acute (2) contractions Status: Acute History of Present Illness Date of Service: 08/16/20 Was patient seen by the physician?: Yes Reason For Visit: PAIN Final DEMARCO: 10/28/20 Final DEMARCO Source: US <20 weeks Gestational age: 29 Weeks and 4 Days History of Present Illness: 35yo @ 29 4/7 weeks gestation presents with c/o headache, nausea, and contractions with 10/10 abdominal pain. She has had several visits for recurrent painful [place] contractions since 22 weeks gestation in office and triage. She was treated for NAAT confirmed ureaplasma infection and yeast infection starting 2 weeks ago and continued contractions despite treatment. She also failed a trial of Nifedipine and a separate trial of Indocin with no amelioration of contractions during this time period. UTI was ruled out. She was seen in the office last on 08/13 with similar complaints including painful contractions and headache with n/v and ruled out for preeclampsia. Today she reports headache is dull and without vision changes or upper abdominal pain. HOME MEDICATIONS lOVENOX 40MG SC injection daily multivitamin - 1 tab po daily Fiorecet 1-2 tabs po bid prn severe headache - not taking Ferrous sulfate 325mg - 1 tab po bid Allergies citalopram hydrobromide [From Celexa] Allergy (Verified 08/16/20 13:08) Shortness of breath latex Allergy (Verified 08/16/20 13:08) Hives codeine Adverse Reaction (Verified 08/16/20 13:08) Vomiting - Pertinent Past Medical History Medical History: Past Medical History (This Medical Record has been edited. Action required.) Asthma Compound heterozygous MTHFR mutation [id number] Endometriosis Endometriosis determined by laparoscopy 2005, 2006 Migraines DAVIDSON-1 4G/5G genotype Surgical History: Past Surgical History (This Medical Record has been edited. Action required.) History of cholecystectomy 02/2017 History of salpingoophorectomy LEFT, 2006 Previous section 12/31/17, arrest of descent S/P dilation and curettage SAB in 2015, 2016 Laboratory Studies: Laboratory Tests 08/16/20 08/16/20 08/16/20 Range/Units 17:55 14:15 14:15 WBC (4.4-11.0) K/mm3 RBC (4.2-5.4) M/mm3 Hgb (12.0-15.0) g/dL Hct (37-47) % MCV (81-99) fL MCH (27.0-32.0) pg MCHC (32-36) g/dL RDW Std Deviation (35.1-43.9) fl RDW Coeff of Ld (11.6-14.6) % Plt Count (150-450) K/mm3 MPV (6.2-12.0) fl Creatinine 0.44 L (0.55-1.02) mg/dL Estim Creat Clear Calc 142.49 ml/min Est GFR (MDRD) Af Amer 209 (>60) mL/min Est GFR (MDRD) Non-Af 173 (>60) mL/min Uric Acid 3.9 (2.6-6.0) mg/dL AST 10 L (15-37) U/L ALT 15 (13-56) U/L Urine Color Yellow (Yellow) Urine Clarity Clear (Clear) Urine pH 7.0 (5.0 - 8.0) Ur Specific [place] 1.015 (1.002-1.030) Urine Protein 15 H (Negative) mg/dl Urine Glucose (UA) Normal (Normal) mg/dl Urine Ketones Negative (Negative) mg/dl Urine Occult Blood Negative (Negative) /ul Urine Nitrite Negative (Negative) Urine Bilirubin Negative (Negative) mg/dL Urine Urobilinogen Normal (Normal) mg/dl Ur Leukocyte Esterase 100 H (Negative) /ul Urine RBC 0 SEEN (0-5) /hpf Urine WBC 5-10 SEEN (0-5) /hpf Ur Squamous Epith Cells 0-5 SEEN (5-10) /hpf Urine Bacteria 1+ (None Seen) /hpf Urine Mucus 2+ (<or=2+) /hpf Urine Yeast RARE (None Seen) /hpf U Random Total Protein 31.2 H (<11.9) mg/dL Urine Creatinine 162.00 (NO RANGE EST.) mg/dL Protein/Creatinin Ratio 193 (0-200) mg/g CRE 08/16/20 Range/Units 14:15 WBC 9.8 (4.4-11.0) K/mm3 RBC 4.23 (4.2-5.4) M/mm3 Hgb 10.9 L (12.0-15.0) g/dL Hct 35.2 L (37-47) % MCV 83.2 (81-99) fL MCH 25.8 L (27.0-32.0) pg MCHC 31.0 L (32-36) g/dL RDW Std Deviation 43.8 (35.1-43.9) fl RDW Coeff of Ld 14.5 (11.6-14.6) % Plt Count 214 (150-450) K/mm3 MPV 12.2 H (6.2-12.0) fl Creatinine (0.55-1.02) mg/dL Estim Creat Clear Calc ml/min Est GFR (MDRD) Af Amer (>60) mL/min Est GFR (MDRD) Non-Af (>60) mL/min Uric Acid (2.6-6.0) mg/dL AST (15-37) U/L ALT (13-56) U/L Urine Color (Yellow) Urine Clarity (Clear) Urine pH (5.0 - 8.0) Ur Specific [place] (1.002-1.030) Urine Protein (Negative) mg/dl Urine Glucose (UA) (Normal) mg/dl Urine Ketones (Negative) mg/dl Urine Occult Blood (Negative) /ul Urine Nitrite (Negative) Urine Bilirubin (Negative) mg/dL Urine Urobilinogen (Normal) mg/dl Ur Leukocyte Esterase (Negative) /ul Urine RBC (0-5) /hpf Urine WBC (0-5) /hpf Ur Squamous Epith Cells (5-10) /hpf Urine Bacteria (None Seen) /hpf Urine Mucus (<or=2+) /hpf Urine Yeast (None Seen) /hpf U Random Total Protein (<11.9) mg/dL Urine Creatinine (NO RANGE EST.) mg/dL Protein/Creatinin Ratio (0-200) mg/g CRE Review of Systems Constitutional: Denies: Chills, Fever HEENT: Reports: Head Aches, Sore Throat. Denies: Visual Changes Cardiovascular: Denies: Chest Pain Respiratory: Reports: Shortness of Breath. Denies: Cough Genitourinary: Denies: Dysuria, Hematuria, Urgency Gynecological: Reports: - - spotting x 1 today. Denies: Vaginal itching Neurological: Denies: Blurred vision Physical Exam Vitals: Vital Signs Temp Pulse BP Pulse Ox 98.4 F 86 127/71 H 99 08/16/20 19:45 08/16/20 19:38 08/16/20 19:38 08/16/20 19:45 General: Alert, Oriented x3, Cooperative, No apparent distress HEENT: Atraumatic, Normocephalic Cardiovascular: Regular rate, Regular Rhythm, Normal S1, Normal S2 Lungs: Clear to auscultation, Normal air movement Abdomen: Soft, Non Tender, Non-Distended, Gravid, - - No CVA tenderness Extremities:: No edema, Other - +1 b/l LE and UE DTRs, no clonus Neurological: Neuro grossly intact WIPING RAG WASHER: Normal external genitalia Cervix Dilation (cm): 2 Station: -3 Effacement (%): 50 NST - FHR Rate Baby A Baseline: 140 Variability:: Moderate Accelerations:: 10 x 10 Decelerations:: None NST Reactive:: Yes FHR Category:: Category I Uterine Activity:: [place] 0/10 Impression/Plan 35yo @ 29 4/7 weeks gestation with c/o painful contractions and headache. -Preeclamptic labs ordered and wnl, no evidence of preeclampsia on exam -U/A ordered -SVE 2/50/-3, moderate and midposition by my exam. Unclear if this is the same as recent nurse exam or different, but this is different exam from my office exam on 07/26/20. -IV fluid bolus ordered -Start betamethasone course -Observation, r/o labor
[2020-08-16] MEDS: Betamethasone/Betamethasone 30 MG/5 ML Vial 12 MG IM (18:04)
[2020-08-16 18:11] LABS: Color, Urine Yellow (Yellow); Glucose, Dipstick Normal (Normal); Ketone-Dipstick Negative (Negative); Leukocyte Esterase-Dipstick 100 /ul (Negative); Nitrite-Dipstick Negative (Negative); Occult Blood-Urine Negative /ul (Negative); Protein-Dipstick 15 mg/dl (Negative); Red Blood Cells-Urine 0 SEEN /hpf (0-5); Specific Gravity, Urine 1.015 (1.002-1.030); Urine Bilirubin Dipstick Negative (Negative); Urine Clarity Clear (Clear); Urine Urobilinogen Normal (Normal)
[2020-08-16 18:18] LABS: Mucous, Urine 2+ /hpf (<or=2+)
[2020-08-16 18:19] LABS: White Blood Cells 5-10 SEEN /hpf (0-5); Yeast-Urine RARE /hpf (None Seen)
[2020-08-16 18:20] LABS: Bacteria 1+ /hpf (None Seen); Squamous Epithelial Cells - UA 0-5 SEEN /hpf (5-10)
[2020-08-16] MEDS: Lactated Ringers 1,000 ML 999 ML IV (18:40)
[2020-08-16] MEDS: Acetaminophen 500 MG Tablet 1000 MG PO (21:00)
[2020-08-16] MEDS: Magnesium Sulfate 4gm/100mL 4 GM/100 ML IV.SOLN. IV ×2 (22:04→22:24)
[2020-08-16] MEDS: Magnesium Sulfate 20 GM/500 ML BAG IV (22:38)
[2020-08-16] MEDS: Ondansetron 4 MG/2 ML Vial IV (22:39)
[2020-08-17] VITALS: BP 119/63; PULSE 90
[2020-08-17 00:23] VITALS: RESP 19; TEMP 36.6; O2SAT 98
== END 2020-08-17 00:20 | disposition home or self-care (01) ==
LOC: WPOUT 12:19 → WP 12:20
PROVIDERS: Visit Provider Obstetrics & Gynecology
DX: O60.02 Preterm labor without delivery, second trimester (principal); Z3A.29 29 weeks gestation of pregnancy
CPT/HCPCS: 96361; 96365; 96367; 96368; 96375; 36415; 59025; 59050; 81001; 82565; 82570; 84156; 84450; 84460; 84550; 85027; 94760; 96372; 99218; J7120; G0378; J0696; J0702; J2405

== ENCOUNTER 2020-09-01 14:58 | Outpatient (CLI) | payer MEDICAID, SELFPAY ==
[2020-08-16 13:12] VITALS: BMI 40.6
[2020-09-01] MEDS: Lactated Ringers 1,000 ML 999 ML IV (15:27)
[2020-09-01 15:29] LABS: Red Blood Cells-Urine 0 SEEN /hpf (0-5)
[2020-09-01 15:30] LABS: Color, Urine Yellow (Yellow); Glucose, Dipstick Normal (Normal); Ketone-Dipstick 50 mg/dl (Negative); Leukocyte Esterase-Dipstick 500 /ul (Negative); Nitrite-Dipstick Negative (Negative); Occult Blood-Urine Negative /ul (Negative); Protein-Dipstick Negative (Negative); Urine Bilirubin Dipstick Negative (Negative); Urine Clarity Cloudy (Clear); Urine Urobilinogen Normal (Normal)
[2020-09-01 15:35] VITALS: BP 110/63; PULSE 92; TEMP 36.7
[2020-09-01 15:41] LABS: Mucous, Urine 1+ /hpf (<or=2+)
[2020-09-01 15:42] VITALS: BMI 39.9
[2020-09-01 15:43] LABS: Squamous Epithelial Cells - UA 5-10 SEEN /hpf (5-10); White Blood Cells 10-25 SEEN /hpf (0-5)
[2020-09-01 15:46] LABS: Bacteria RARE /hpf (None Seen)
[2020-09-01 15:50] LABS: ROM Internal Control Test YES-OK TO RESULT pt. (Internal QC); ROM Patient Test Negative (Negative)
[2020-09-01] MEDS: cycloBENZAPRine HCl 10 MG Tablet PO (16:13)
--- NOTE | 2020-09-01 16:27 | PN_ITS ---
Progress Note Triage Note: presented at 31/6w with contractions and low back pain, leaking. Patient has history of labor and was sent to [facility] on 08/16 (she has received 1 course of betamethasone at that time). Also complicated by MTHFR/DAVIDSON-1 mutation (was previously on lovenox, but taken off during admission at [facility]). She is now on progesterone supplementation orally, as well as procardia 30 mg daily. CE per RN on initial exam is 3 cm, unchanged from her admission and visit with Dr. Nicole Juan last week. ROM negative, not ruptured today. UA negative for UTI, likely contaminated. Patient's toco irritable, with some irregular contractions. FHR 140/mod misael/+accel/no decel. Will give IVF hydration, monitor x4 hrs. Offered flexeril, taken. [place] like after flexeril contractions were more uncomfortable. At that time I came to assess patient in person. Reports copious good movement today, +contractions that have been persistent since last Wednesday. Denies vaginal bleeding.She appears comfortable in bed. Exhausted from many weeks of contractions. Cervix checked, unchanged at 3 cm, very thick posteriorly, high station. Abdomen soft, not rigid, no rebound or guarding. Gravid and obese. Trace pedal edema. Had extensive discussion with the patient of management options including: admission overnight here with monitoring for cervical change verse expectant management at home. Discussed diagnosis at this time of contractions. Without cervical change, no concerns for labor at this time. No evidence of abruption: abdomen soft, no vaginal bleeding, reassuring status. Patient does not have ruptured membranes. Discussed repeating celestone course today as it has been greater than 14 days since last course. Discussed use of celestone and how it improves outcomes if she were to deliver in the next 7 days. As she is currently not making cervical change, patient declines celestone at this time. As there has not been cervical change noted with irregular contractions, no signs of labor, patient elects for discharge home with home monitoring at this time. Labor precautions discussed at length. Pt to return for LOF, VB, decreased movement, worsening contraction pain. Overall status reassuring, variable deceleration x1. Will plan to discharge home after 4 hours of and maternal monitoring, which will be two hours of reassuring tracing after variable decel. Patient and husbands questions answered. She is comfortable with plan for discharge home and home monitoring. Keep appointment for Wednesday with Dr. Nicole Juan. STROKE Vital Signs/Narrative: Vital Signs Pulse BP 09/01/20 15:35 92 110/63
[2020-09-01] MEDS: Lactated Ringers 1,000 ML 100 ML IV (16:35)
== END 2020-09-01 19:05 | disposition home or self-care (01) ==
LOC: WPOUT 15:00 → WP 15:02
PROVIDERS: Visit Provider Student in an Organized Health Care Education/Training Program
DX: O99.891 Other specified diseases and conditions complicating pregnancy (principal); M54.5 Low back pain; Z3A.31 31 weeks gestation of pregnancy
CPT/HCPCS: 96360; 96361; 59025; 59050; 81001; 84112; 99218; J7120; G0378; J0702

== ENCOUNTER → 2020-09-11 14:10 | Outpatient (CLI) | payer MEDICAID, SELFPAY ==
[2020-09-01 15:42] VITALS: BMI 39.9
[2020-09-11 14:20] LABS: Hematocrit 33.9 % (37-47); Hemoglobin 10.5 g/dL (12.0-15.0); Mean Corpuscular Hgb 25.4 pg (27.0-32.0); Mean Corpuscular Volume 81.9 fL (81-99); Platelet Count 217 K/mm3 (150-450); RBC Distribution Width CV 14.4 % (11.6-14.6); RBC Distribution Width SD 42.5 fl (35.1-43.9); Red Blood Count 4.14 M/mm3 (4.2-5.4); White Blood Count 8.8 K/mm3 (4.4-11.0)
[2020-09-11 14:29] LABS: Protein, Urine (Random) 37.6 mg/dL (<11.9); Protein:Creat Ratio 203 mg/g CRE (0-200)
[2020-09-11 14:36] LABS: ALB/GLOB Ratio 0.7 RATIO (0.9-2.4); AST(SGOT) 9 U/L (15-37); Alanine Aminotransfer ALT/SGPT 18 U/L (13-56); Albumin, Serum 2.7 g/dL (3.2-5.0); Alkaline Phosphatase 92 U/L (45-117); Anion Gap 6 (5-15); BUN 5 mg/dL (7-18); BUN/Creat Ratio 10.4 RATIO (10-20); Calcium,Total 8.4 mg/dL (8.5-10.1); Chloride 109 mmol/L (98-107); Creatinine, Serum 0.48 mg/dL (0.55-1.02); EST Glomerular Filtration Rate 157 mL/min (>60); Est Glom Filt Rate - Afr Amer 190 mL/min (>60); Globulin 3.9 g/dL (2.2-4.2); Glucose 76 mg/dL (74-106); Protein, Total 6.6 g/dL (6.4-8.2); Sodium Level 140 mmol/L (136-145); Uric Acid 3.9 mg/dL (2.6-6.0)
== END ==
PROVIDERS: Visit Provider Obstetrics & Gynecology
DX: O13.3 Gestational [pregnancy-induced] hypertension without significant proteinuria, third trimester (principal); Z3A.00 Weeks of gestation of pregnancy not specified
CPT/HCPCS: 36415; 80053; 82570; 84156; 84550; 85027

== ENCOUNTER 2020-09-12 18:35 | Outpatient (CLI) | payer MEDICAID, SELFPAY ==
[2020-09-12 19:11] VITALS: BP 131/82; PULSE 99; TEMP 36.8; O2SAT 97
[2020-09-12 19:12] VITALS: PULSE 87; O2SAT 97
[2020-09-12 19:20] VITALS: BMI 40.4
[2020-09-12 19:42] LABS: ROM Internal Control Test YES-OK TO RESULT pt. (Internal QC); ROM Patient Test Negative (Negative)
--- NOTE | 2020-09-12 21:56 | OB.TRI.NOTE ---
History of Present Illness Date of Service: 09/12/20 Was patient seen by the physician?: Yes Reason For Visit: RULE OUT PRE-TERM LABOR Date of Service: 09/12/20 Final DEMARCO: 10/28/20 Final DEMARCO Source: US <20 weeks Gestational age: 33 Weeks and 3 Days History of Present Illness: 35-year-old G4, P1 at 33 weeks and 3 days with DEMARCO: 10/28/1999 20 x 6-week ultrasound arrives with contractions and leakage of fluid. Patient states that she has had contractions throughout but the pain and contractions increase. And found clear leakage of fluid earlier today. Denies headache, visual changes, nausea vomiting, chest pain, shortness of breath, right upper quadrant pain. Patient states good movement. Obstetrical history: G1: SAB 06/06/16 G2: SAB 01/04/2017 G3: 37-week primary for failure to progress G4: Current Review of systems: Besides the above pertinent positives a full review of systems was performed and found to be negative Allergies citalopram hydrobromide [From [employer]] Allergy (Verified 09/12/20 19:21) Shortness of breath latex Allergy (Verified 09/12/20 19:21) Hives codeine Adverse Reaction (Verified 09/12/20 19:21) Vomiting - Pertinent Past Medical History Medical History: Past Medical History (This Medical Record has been edited. 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 Action required.) History of cholecystectomy 02/2017 History of salpingoophorectomy LEFT, 2005 Previous section 12/31/17, arrest of descent S/P dilation and curettage SAB in 2015, 2016 Laboratory Studies: Laboratory Tests 09/12/20 Range/Units 18:55 Vag Amniotic Fld Detect Negative (Negative) Physical Exam Vitals: Vital Signs Temp Pulse BP Pulse Ox 98.3 F 87 131/82 H 97 09/12/20 19:11 09/12/20 19:12 09/12/20 19:11 09/12/20 19:12 General: Alert, Oriented x3, Cooperative, No apparent distress, Well developed, Well nourished HEENT: Atraumatic, PERRLA, Normocephalic Cardiovascular: Regular rate, Regular Rhythm, Normal S1 Lungs: Clear to auscultation, Normal air movement, No rhonchi, No wheeze, No rales Abdomen: Bowel Sounds Present, Soft, Non Tender, Non-Distended, Gravid, - - No palpable contractions Extremities:: No clubbing, No cyanosis, No edema Neurological: Neuro grossly intact [employer]: Normal external genitalia Estimated gestational size: Appropriate for gestational size Cervix Dilation (cm): 3 Station: -2 Effacement (%): 50 NST - FHR Rate Baby A Baseline: 120 Variability:: Moderate Accelerations:: 15 x 15 Decelerations:: None NST Reactive:: Yes Uterine Activity:: Irritable Impression/Plan 35 G4, P1 at 33 weeks and 3 days arrives with leakage of fluid ruled out rupture. Arrives with contractions, this has been a persistent issue this . Status post previous [facility] and previous transport. Currently with cervix is similar to previous check by main provider. Cervix has remained unchanged for greater than 2 hours. Uterine irritability seen on toco has been persistent throughout this with no pathology found. heart tones reassuring. Based on these findings no signs of labor, infection, or distress. Discussed overnight stay versus expectant management at home. Patient elects for expectant management at home. Will see in office tomorrow. Discussed signs and symptoms of labor.
== END 2020-09-12 22:10 | disposition home or self-care (01) ==
LOC: WPOUT 18:48 → WP 18:48
PROVIDERS: Referring Provider Obstetrics & Gynecology; Visit Provider Obstetrics & Gynecology
DX: O26.893 Other specified pregnancy related conditions, third trimester (principal); Z3A.33 33 weeks gestation of pregnancy
CPT/HCPCS: 59025; 59050; 84112; 99218; G0378

== ENCOUNTER 2020-09-28 18:45 | Outpatient (CLI) | payer MEDICAID, SELFPAY ==
[2020-09-28 18:56] VITALS: TEMP 36.7
[2020-09-28 18:59] VITALS: BP 119/71; PULSE 108
[2020-09-28 19:03] VITALS: BMI 40.8
[2020-09-28 19:55] LABS: ROM Internal Control Test YES-OK TO RESULT pt. (Internal QC); ROM Patient Test Negative (Negative)
--- NOTE | 2020-09-28 20:35 | NURSING ---
Dr. Meadows notified that medical screening exam required in person physician evaluation. Provider states he is not coming to hospital to evaluate patient at this time and to discharge patient to home.
--- NOTE | 2020-10-04 09:23 | OB.TRI.NOTE ---
History of Present Illness Date of Service: 09/28/20 Was patient seen by the physician?: No Reason For Visit: RULE OUT FOR LABOR Date of Service: 09/28/20 Final DEMARCO: 10/28/20 Final DEMARCO Source: US <20 weeks Gestational age: 35 Weeks and 5 Days History of Present Illness: 35+ week intrauterine with some contractions. Presents to confirm that she is not in labor. Allergies citalopram hydrobromide [From [employer]] Allergy (Verified 09/12/20 19:21) Shortness of breath latex Allergy (Verified 09/12/20 19:21) Hives codeine Adverse Reaction (Verified 09/12/20 19:21) Vomiting - Pertinent Past Medical History Medical History: Past Medical History (This Medical Record has been edited. Action required.) Asthma Compound heterozygous MTHFR mutation [id number] Endometriosis Endometriosis determined by laparoscopy 2005, 2006 Migraines DAVIDSON-1 4G/5G genotype Surgical History: Past Surgical History (This Medical Record has been edited. Action required.) History of cholecystectomy 02/2017 History of salpingoophorectomy LEFT, 2005 Previous section 12/31/17, arrest of descent S/P dilation and curettage SAB in 2015, 2016 Laboratory Studies: Laboratory Tests 09/28/20 Range/Units 19:25 Vag Amniotic Fld Detect Negative (Negative) Physical Exam Vitals: Vital Signs Temp Pulse BP 98.0 F 108 H 119/71 09/28/20 18:56 09/28/20 18:59 09/28/20 18:59 NST - FHR Rate Baby A NST Reactive:: Yes FHR Category:: Category I Impression/Plan 35+ week intrauterine with transient contractions. No cervical change after monitoring. Reactive nonstress test. Will discharge to home with routine instructions and follow-up.
== END 2020-09-28 20:45 | disposition home or self-care (01) ==
LOC: WPOUT 18:52 → WP 18:53
PROVIDERS: Referring Provider Obstetrics & Gynecology; Visit Provider Obstetrics & Gynecology
DX: O60.03 Preterm labor without delivery, third trimester (principal); Z3A.35 35 weeks gestation of pregnancy
CPT/HCPCS: 59025; 59050; 84112; 99218; G0378

== ENCOUNTER → 2020-10-01 | Outpatient (CLI) | payer MEDICAID, SELFPAY ==
[2020-09-28 19:03] VITALS: BMI 40.8
== END | disposition home or self-care (01) ==
LOC: LABSPEC 11:49
PROVIDERS: Visit Provider Obstetrics & Gynecology
DX: Z36.85 Encounter for antenatal screening for Streptococcus B (principal)
CPT/HCPCS: 87081

== ENCOUNTER 2020-10-05 01:35 | Inpatient (IN) | payer MEDICAID, SELFPAY ==
[2020-10-04 23:28] VITALS: BP 131/86; PULSE 102; TEMP 36.6
[2020-10-04 23:29] VITALS: PULSE 108; O2SAT 97
[2020-10-04 23:41] VITALS: BMI 41.1
[2020-10-05] VITALS (26 sets, daily range): BP systolic 99–139; BP diastolic 41–76; PULSE 68–214; RESP 14–18; TEMP 36.2–36.7; O2SAT 85–100
--- NOTE | 2020-10-05 | FALS_PTH ---
PATIENT: ISMAEL MYLES LOC: [facility] U#:[id number] AGE/SX: 35/F ROOM: WP006 RE10/05/[address]: Dr. Wood Meadows MD : 1985 BED: 1 DIS: 10/07/2020 SPEC #: [id number] RECD: 10/07/20 10:05 STATUS: CHELITA YANCI #: [id number] SILVINO: 10/05/20 00:[address]: Wood Meadows DEPT: SURGICAL PATHOLOGY RECD BY: Jose Daniel Lei Tissues: Fallopian tube Procedures: Surgery Specimen Level II HEADER OPERATION: Tubal ligation PRE-OP DIAGNOSIS: Sterilization TISSUE SUBMITTED: Right tube MICROSCOPIC DIAGNOSIS Right fallopian tube, salpingectomy: Fallopian tube including fimbrial end, no pathologic diagnosis. DAPHNEY:gustavo 10/08/2020 MICROSCOPIC DESCRIPTION Slides are reviewed. GROSS DESCRIPTION Received in fixative is one container labeled with the patient's name and designated right tube. The specimen consists of a fallopian tube measuring 4.5 cm in length and 0.7 cm in average diameter. A normal fimbriated end is present. No mass lesions are identified. Livestock [employer] sections are submitted in one cassette. / AM:gustavo 10/07/20 TC:4 CPT: 93409
[2020-10-05] MEDS: Lactated Ringers 1,000 ML 200 ML IV (02:00)
[2020-10-05] MEDS: Lactated Ringers 500 ML 999 ML IV (02:05)
[2020-10-05 02:19] LABS: Absolute Lymphocyte Count 2.68 X10^3/uL (0.83-4.51); Absolute Neutrophil Count 7.7 X10^3/uL (2.0-7.7); Basophil# 0.03 X10^3/uL; Basophil% 0.3 % (0-1); Eosinophil# 0.07 X10^3/uL; Eosinophils% 0.6 % (0-5); Hematocrit 33.1 % (37-47); Hemoglobin 10.3 g/dL (12.0-15.0); Lymphocyte # 2.68 X10^3/ul (4.0); Lymphocyte % 23.5 % (19-41); Mean Corp Hgb Conc 31.1 g/dL (32-36); Mean Corpuscular Hgb 24.8 pg (27.0-32.0); Mean Corpuscular Volume 79.8 fL (81-99); Mean Platelet Vol. 12.5 fl (6.2-12.0); Monocyte% 7.9 % (0-10); NRBC Flagged by Analyzer 0 % (0-5); Neutrophil # 7.65 X10^3/uL (2.7-7.7); Neutrophil % 67.2 % (47-70); Platelet Count 190 K/mm3 (150-450); RBC Distribution Width CV 14.6 % (11.6-14.6); RBC Distribution Width SD 42.3 fl (35.1-43.9); Red Blood Count 4.15 M/mm3 (4.2-5.4); White Blood Count 11.4 K/mm3 (4.4-11.0)
--- NOTE | 2020-10-05 02:32 | HP.PCM_ITS ---
History and Physical Date of Admission: 10/05/20 ACOG ANTEPARTUM RECORD - HISTORY AND PHYSICAL (10/05/2020) Name: DIVINE MYLESCIA History of This : This is a 35-year-old G4, P1 Ab2 who presents to labor and delivery at 36+5 weeks and active labor. She received a dose of Celestone approximately 32 weeks when she presented at that time with some transient contractions. She has been at approximately 4 to 5 cm for at least a week. Tonight she presented at about 5 cm and progressed to about 8 to 9 cm and is admitted for repeat and tubal. OB Physician: JOEY 's Physician: [facility] ...................................................................... : 1985 Age: 35 Address: [address] [place] [address] Phone: ([phone] (o) [phone] Insurance Carrier: [facility] [id number] Emergency Contact: KAVON SHAMEKA [phone] ...................................................................... Final DEMARCO: 10/28/20 By Ultrasound: 6 weeks 4 days PARITY: (G-Total Pregnancies P-Fullterm,Premature,Induced AB,Spont AB, Ectopics, Multiple,Living) DEMARCO CONFIRMATION: By LMP: 01/22/20 Initial Exam: 10/27/20 By First Ultrasound Exam: 10/28/20 Final DEMARCO: 10/28/20 OB PROBLEM LIST: ALLERGIC TO LATEX, CELEXA, CODIENE. Hx- asthma, pneumonia, UTI, endometriosis. BMZ 08/16-08/17 Hx recurrent SAB - was on Lovenox - d/c'd at 30wga by ELIELM DAVIDSON-1, MTHFR mutations - heterozygote ALLERGIES: Celexa Difficulty breathing Codeine Intolerance-vomiting Latex Hives and/or rash MEDICATIONS: aspirin 81 mg chewable tablet 1 po qd ferrous sulfate 325 mg (65 mg iron) tablet 1 po QOD Fioricet 50 mg-300 mg-40 mg capsule 1 to 2 tabs po bid prn severe headache Folbic RF 2 mg-1.13 mg-25 mg tablet 1 PO QD SOCIAL HISTORY: Smoking - Never Alcohol Use - drinks occasionally not while Diet - balanced Diet, caffeine < 2 drinks per day, minimal dairy and when no NVP 6-8 glasses water. 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 Illicit Drug Use - None Sexual Activity - Residence - owns a home Place of - [place] Hours Worked - currently on [place] Spouse-Sig Other Name - Christopher Spouse-Sig Other Occupation - Principal Associate/PT trade embalmer Spouse-Sig Other Phone No - [phone] Children Name(s) - Kar PRIOR DELIVERY HISTORY DEL DATE GEST LAB WT LB WT OZ TYPE ANES LABOR TX 03 Apr 17 7 0 0 0 Vag General No 03 Sep 16 3 0 0 0 Vag General No 30 Mar 18 37 17 6 14 C-Sec Epidural No ANTEPARTUM FLOW CHART VISIT GE RTC FU F F AK U U DATE WK MD WKS HT PN HR M SS BP ED WT AK GL D EF ST __ ____ ___ __ __ ___ __ __ __ ___ __ __ __ ___ __ 30 Dec 36 SHM 1 36 V + de 140/84 0 220 tr - 5 70 -3 29 Sep 36 SHM 1 37 V + + 118/82 sl 221 5 70 -3 22 Dec 35 SHM 1 36 V + + 130/84 0 217 1+ ne 4 50 -3 18 Dec 34 SHM 2 34 V + + 118/76 0 222 14 Dec 34 JM 1 34 V + de 120/78 0 221 tr - 11 Sep 33 JM 1 33 V + + 126/78 0 216 tr ne 3 50 -3 09 Dec 33 SHM 1 33 V + + 138/90 o 220 tr - 02 Dec 32 SHM 1 32 V + + 110/68 sl 222 tr ne 24 Aug SHM 1 31 + + 120/72 0 216 1+ - 18 Sep 02 SHM 1 30 ? + + 130/78 0 220 - - 3+ 60 -3 11 Sep 01 SHM 1 29 ? + + 106/76 sl 219 tr - 27 Oct 27 SHM 1 28 ? + + 100/70 sl 222 tr - 23 Oct SHM 1 26 ? + + 112/78 sl 219 tr - ft 0 -5 12 Jul 28 SHAKA 2 25 + + 124/78 sl 221 tr - cl 29 Sep SHM 4 25 ? + + 118/82 0 223 tr - 22 Sep SHM 4 24 on + 110/70 0 222 - - 01 Sep SHM 4 22 on O 120/74 0 221 tr - 26 May 21 CH + O 110/80 0 219 tr - 04 May 18 SHM 4 + O 122/72 0 223 tr - Apr 13 SHM 4 + - 116/82 0 223 tr - ANTEPARTUM NOTE(S): Oct 02 2020: increased ctx's Oct 01 2020: ctx's, cramping, back pain Sep 24 2020: lower back/hip pain, increase perineal pressure Sep 20 2020: good FM, still uncomfortable Sep 16 2020: see note Sep 13 2020: CTX, hsop last evening for check Sep 11 2020: Sep 04 2020: irregular CTX, perineal pressure Aug 27 2020: see note Aug 21 2020: Aug 14 2020: See note Jul 30 2020: see note Jul 26 2020: see note Jul 15 2020: Jul 02 2020: Jun 25 2020: see note Jun 04 2020: comp u/s today May 29 2020: May 07 2020: see note Apr 12 2020: see note COMPREHENSIVE ANTEPARTUM NOTE(S): Oct 02 2020: Repeat B/P 124/76. NST reactive, active FM. LMT Oct 02 2020: Denies headache, vision changes, upper abdominal pain. Notes decreased FM. [place] movement twice this morning including rolls. NST reactive tod ay with 4 movements noted over 30 min. Ctx 20-60 seconds, occurring q1-1.5 min. Trial calcium supplement. Cervix unchanged from prior. No sx preeclampsia - d/c home. Oct 01 2020: Ismael is here for a PNV. Good FM. Sl edema in feet. Pt presents with ctx's cramping, pressure and pain. States she went to over the weekend, she was 4 cm dilated. The nurse she had sent her home and told her maybe one time she will get it right in reference to knowing when she is in labor. Pt states her ctx's are ever 2 to 2 1/2 min's apart. Due for GBS and LARC, consents signed. LARC declined. MK Oct 01 2020: Pt last seen in on 09/28/20, ROM plus negative and exam 4.5cm per RN. Exam today 5cm/70/-3, soft and midposition. Will continue to monitor contractions and return to office later today for cervix check. US with grossly normal SHARON, CEPHALIC, OA. Returned to office 2-3 hours later and cervix check unchanged from prior. Encouraged to go home, rest, hydrate and monitor for increasing intensity or frequecy of contractions. Discussed that given late term goal to avoid augmentation at this time, however, may consider augmentation if indicated after 37 wga Sep 24 2020: Ismael is here for PNV. Moving very slow. Having continued c/o lower back and hip pain. Increase in perineal pressure. BH CTX. Good FM. No edema presently but states she does have some by end of day. Urine dipped 1+ and neg. LSS Sep 20 2020: Feels baby is lower now. Some increased pain yesterday, Better today but still concerned. LMT Sep 16 2020: Ismael is here to have cervix ck. She feels that she has lost her mucus plug. She has passed bloody mucus several times. Increased pressure, back pain. Urine dip is negative for leuks and nitrate. NO blood noted but large ketones present. Increased nausea is noted that is not helped much by Zofran and Phenergan. Has noticed mvmt has slightly changed/not as big of movements. NST today for reassurance. Discussed size change of baby. Reviewed mucus plug is not a significant finding but if bleeding is increased or SROM needs seen. At 34 weeks baby is more likely to be able to stay at [facility] but its not a promise. LMT Sep 16 2020: 34wk, unscheduled visit. Pt with back pain, lost mucus plug, and decreased movement. educated on mucus plug. SSE neg. CE unchanged. For NST reactive. Sep 13 2020: Ismael is here for PNV. Moving very slow. States she is very uncomfortable and in pain. Having CTX over entire abdomen. Pain and pressure in lower back and into the perineal area. [facility] check. States she was told she is 3-4 cm. No edema noted. Good FM. Urine dipped tr and neg. LSS Sep 13 2020: 33wk, pt arrives for unscheduled visit. Pt was seen in triage last night 09/12/20 with contractions and leakage of fluid. Unchanged cervix and negative ROM at that time. Today with unchanged feelings of contractions. CE unchanged from last nights exam. Educated on results, will continue expectant management. Sep 11 2020: Ismael is her for her PNV she is 33 + 2. Reports good FM. Trace of edema present today. Reports that Wednesday her headache and spots in her vision returned. Her vomiting returned Wednesday morning and has in the evenings also. She has vomiting 2-4 times a day. Reports she feels tired and worn out. Reports that ctx's are stronger, vaginal pressure and hip pain are more intense since last visit. She has sharp vaginal pain since last visit and is tired of the pain. Medications and allergies reviewed. Second BP after laying on left side for 10 min. 132/80. No other concerns or complaints expressed today. LJW Sep 11 2020: Cyclical vomiting recurring again. + vision change and headache. Preeclampsia labs today. +2 b/l LE DTRs. No weight gain, plan growth US next visit with SHARON. SVE deferred as no increase in ctx intensity or frequency today compared to the weekend. Sep 04 2020: Ismael is here for PNV. Was in L on Wednesday with CTX and perineal pressure. Continues on Prometrium.. CTX are irrgular in length and timing. Anywhere from 2-5 min apart and last seconds to a minute. Also lower back pain with CTX. More intense yesterdasy and today. Having good FM. Slight swelling of hands and feet. Urine dipped tr and neg. LSS Sep 04 2020: Seen in triage earlier this week with cervix 3cm and long. No improvement of ctx with Nifedipine, progesterone. Will d/c both. Notes pressure today, however ctx spaced from prior and remains short, no longer 60-90sec. R/b repeat course corticosteroids reviewed - given no cervical advancement following discussion will defer. Pt understands will not give additional course steroids after 34 wga however. Discussed antibiotic course for relief assuming this is subclinical inflammation/infection with review of r/b - pt understands this is experimental and will plan to defer after discussion. Aug 27 2020: Ismael reports that she has been agatha since Wednesday after getting a [place] that she did not lift. She feels that she is agatha q minute all day and all night long. She feels so much pressure that she feels like she needs to push. She has been to [facility] and they had her restart Procardia. She is also taking her Prometrium and Progesterone. Urine dip is negative for blood, leuks, and nitrate, moderate ketones are noted and sp gr is 1.015. LMT Aug 27 2020: SVE unchanged from prior. Will plan to increase progesterone capsules by additional 200mg daily. Encouraged to time length of contractions. Discussed development at this time and importance of continued intrauterine development and associated risks of prematurity at 31-32wga. Given 3cm dilation and persistent contractions, anticipate rapid onset of labor when it does occur. Discussed TOLAC risks/benefits further with risk for uterine rupture approx 1/200 and risk for infant loss approx 1/800, however given extensive abdominal adhesions I recommend proceeding with vaginal delivery if presents in active labor and reassuring status. Pt understands that successful vaginal delivery > scheduled c/s > emergent C/S with regards to risks overall however if uterine rupture occurs requiring emergent delivery she is high risk for bladder and bowel injury relative to someone with less scarring which complicates recovery. Aug 22 2020: Ismael is here at 30 w 3 d for Progesterone injection, as per doctor's order. She reports that [facility] does not have oral Progesterone as prescribed, and requests that Pharmacies closer to [place] be called to see if any of them have the oral Progesterone, she would like to be notified if any have it in stock. Ismael states that she feelsexactly the same as I have been with headaches and contractions. Denies bloody show. Reports good FM today. B/P today: 116/76 (left arm, reg cuff, sitting). Weight in office today: 219 lbs. Ismael states that she understands why she is receiving IM Progesterone, and that two injection sites will be used today, and she is in agreement. 100 mg of Progesterone injected into R and L upper outer quadrants slowly, and Ismael tolerated this well. AW Aug 21 2020: Ismael is here for PNV. + FM. Reports that she has edema in feet in evenings, after setting down and elevating her feet the swelling goes away. Reports that she has pressure and contractions that last 1 1/2 - 2 min. She went to [facility] Wednesday night for contractions and pelvic pressure, was discharged on Wednesday. She was put on Fobic 1 OQ, Iron 325 1 QOD, Baby Aspirin 1 QD, Nefedipine 30 mg and Zofran 1 QD. No other concerns or complaints expressed today. LJW Aug 21 2020: Reactive NST, obtained for dec FM. Pt transferred to [facility] on 08/16/20 on Magnesium after receiving IV Rocephin. Betamethasone course completed. Bala was discharged on 08/18/20 with cervix 3cm dilated. Lovenox d/c'd and told to take iron qod, Folbic, Nifedipine with associated headache. Pt c/o continued ctx and also noted on NST with frequent, 30 sec contractions. She remains uncomfortable and reports frustration. Discussed limited evidence for progesterone as tocolytic. Rx progesterone 200mg IM, then 400mg po thereafter. Pt unable to bead picker today, will return for IM injection tomorrow. Aug 14 2020: Ismael is here for a NST at 29 w 2 d. She states everything hurts; she reports frontal headache since Wednesday AM, and vomiting that started on Wednesday night, she states that both continue. She states that she can keep water donw sometimes. Ismael reports that she has been seeing white spots for a couple of weeks . Ismael states that she feels sharp pains in the upper right part of her abdomen, these have been going on for awhile now. She states that she feels cramping every 2-3 minutes, lasting 1 minute; for awhile. She denies spotting/LoF. Good FM noted. Slight edema noted below knees. NST reactive, read per Dr. Nicole Juan. AW Aug 14 2020: No improvement of contractions with indocin and completed antiotics for Ureaplasma infection, will d/c Indocin. US today, BPP 8/, SHARON 11.5cm, EFW 1501g ([id number]). PTL precautions reviewed. Pt feeling unwell with sudden onset, persistent frontal headache x 4 days with no improvement despite the Indocin, APAP, caffeine. + nausea with emesis a few times a day since then. She notes this feels like a regular headache and not her migraines. No photo- or phonophobia. Known hx perimenstrual migraines outside of - well controlled with luteal phase progesterone supplementation at that time. Preeclamptic labs today. Limited fundoscopic exam. No clonus or hyper reflexia on exam. Rx Fioricet in interim. Jul 30 2020: Ismael is being seen for PNV. Pt is 27 weeks and 1 day. She had gluose testing done today. Pt was seen in L and D yesterday and was evaluated by Dr. Eve Tuttle and is to continue Nifedipine. Pt complains of visual changes, headaches, vomiting due to pain, lower back pains and shoulder pains that radiate up. She states after hospital visit when she got home her cxs lasted for 3 hours and were longer than a minute. AM Jul 30 2020: Extremely uncomfortable c/o headache, vision changes. No abdominal pain apart from contractions. Seen in [facility] yesterday and cervix unchanged from prior x 2. Dr. Sue Tuttle refilled Nifedipine. Ismael feels that Nifedipine does help, but she still have break through contractions periodically. FFN, complete U/A and Ucx today. Vaginitis NAAT remains pending. Jul 26 2020: Ismael is being seen for pnv. Pt is 26 weeks and 4 days. She states kash griffith contractions have been increasing. She states last night the pain was so severe she vomited twice and having lower back pain. She states her legs and sheets were wet in the middle of the night and had mucus and pink discharge this morning. She also complains of a rash that comes and goes to antecubital and upper abdomen that is itchy, blotchy, red and bumpy. AM Jul 26 2020: Fern, pool and nitrazine negative. Cervix FT/long/high, CL >40mm. Vaginitis NAAT sent, Rx Nifedipine for Kash Griffith. Will see next week. Jul 15 2020: Ismael is here as a work in visit with concern of leaking fluid, increasing Tomah Griffith. Reports leaking fluid occurred apprx noon yesterday, soaking pants and puddle on the floor -- fluid clear, no spotting. Leaking has continued, wearing a pad. Feeling FM. ROM + sent to lab. She has glucola bottle and instuctions given at her last appt, to be done at her next scheduled visit. trang Jul 15 2020: 35 yo 25/0w acute visit for leaking. Had leaking starting yesterday, with underwear wet and on floor. Feels damp since then in underwear. Reports some pelvic pressure and Kash Hick's contractions. Ferning and nitrazine negative, CE closed/th/high. SHARON wnl - growth AGA. Rom+ negative. Not ruptured. Precautions given. F/u at routine apt 07/30. Jul 02 2020: Ismael is here today for PNV. States she is feeling well but that this AM her BH contractions got so strong that it made her throw up. Urine dipped tr and neg. No edema noted today but Ismael says there are days she does have to take her rings off because she swells some. GCT instruction sheet given as well as Glucola. Voiced understanding. LSS Jul 02 2020: Longdip - neg nit/leuk/blood/sm ket/SG 1.02/neg bili. Denies fever, chills, URI or urinary sx, no constipation or diarrhea. Suspect early Kash-Griffith. supportive measures. Advised to increase hydration to 80-100oz daily water minimum. Will schedule repeat C/S for 39wga. Jun 25 2020: Ismael is here for emergency evaluation today for complaint of increased ctx's. She relates increased pressure is noted. She also had loose stools yesterday. She felt a little better today until pushing her son in a stroller for an appointment. She states that she feels like she is in labor and something is falling out. Urine long dip is negative for leuks, blood, nitrate, ketones. LMT Jun 25 2020: Still uncomfortable, but feels better overall from prior. Had painful Tomah Griffith with n/v yesterday. N/V resolved and Tomah Griffith not timeable. No suprapubic or CVA tenderness. SSE unremarkable. SVE deferred given marginal previa. Udip neg. Wet prep neg clue/jonathan/yeast. FFN not sent given normal cervical length. CL 44mm without funneling w/wo Valsalva and no sonographic or visual evidence of dilation. Pt reassured. Si/sx PTL reviewed. Jun 04 2020: Anatomy scan today - AGA (45th%), FEMALE, limited heart, spine and diaphragm views. Posterior marginal previa - 1.7cm from os. Repeat anatomy at 28wga. Continues Lovenox injections. Has not resume PNV, but was able to d/c Zofran. Recommend resuming PNV, chewable or gummy. Reports lower abdominal pain resolved with binder. Suspect stretching with painfulness 2/2 scar tissue. Discussed abdominal massage. Note provided for massage in . No movement noted yet. May 29 2020: Ismael is here following call to Triage with concerns about high BP. Brings record from 05-20 to 05/[address] SHIN requested home BP checks. Has multiple c/o low backache, sl headache, gab groin pain and mid abd discomfort. She feels lightheaded in the mornings. T. 98.6 po. BP 110/80 large cuff lt arm. FHT 140-150. Clean catch urine long dip trace protein, sg 1.015, pH 5.0 with remainder WNL. Son, age 2, 30# has been sick w much carrying the past few days. ( Has toe infection-on antibiotics- will not walk.) Reviewed w CH. Suggested maternity belly band for support. Advised check lengtht of BP cuff as small cuff may falsely elevate readings. Our cuff is 7 inches. Could bring her BP machine in at next appt. Reasurrance given. Much time spent w pt. DRC. Also suggested sources of protein in the am for lightheadedness. She is agreeable. DRC. May 20 2020: Ismael is here following call to Triage to evaluate FHT. Ismael's friends have been telling her that at 17 w she should be feeling her baby move. FHT 140 located with ease. Explained more likely to note movement about 20 weeks. Advised to listen to Katalina MORALES MD and staff over friends. Wilfrido EPPERSON. May 07 2020: Ismael is here for visit d/t call reporting she is having increased itching, nausea, emesis. She complains of cramping and lower abdominal discomfort. She was feeling better and then stopped Phenergan. She then started Wednesday with increased itching, nausea, emesis. Recent urine culture was negative. Urine dip today is negative. No ketones are noted today and weight is stable from last visit. Discussed trial of Pepcid? She may notice more discomfort with subsequent pregnancies. Now has toddler at home which makes everything more challenging. States will take Phenergan but not interested in taking Zofran as it does not help and causes signficant constipation. Occ heartburn reported and again encouraged her to try the Pepcid. MSAFP, LFT's, and Bile Acids drawn today. LMT May 07 2020: Isolate itching, no other sx and no rash or sunburn. LFTs and bile acids today. Discussed movement. Lower abdominal discomfort c/w round ligament pain and stretching. Pt with significant adhesions previously. Discussed lower abdominal massage and may massage incision for 2 minutes daily. Clear for car trip for isolate family vacation, will continue Lovenox. Foot pumping in car qhour and walk q1-2 hours. Avoid crowded areas and take masks into public areas. Continue Promethazine, does not tolerate Zofran due to constipation. Add in Reglan. Apr 29 2020: Ismael is here for evaluation of UTI s/s following call to Triage. Has c/o crampy low abd pain, hurts, not really burning though during voiding. Symptoms since Wednesday and feeling worse today. No c/o leaking fluid, vag bleeding or discharge. T. 97.7 po. Pt not weighed due to large walking boot on foot/leg. Clean catch urine explained and obtained. Long dip: protein 1+, leuks trace, sg 1.010, pH 7.0 with remainder normal. Reviewed w Dr ALBRECHT. Urine spec to lab for C. Macrobid escripted to her pharmacy. Message left re culture and meds. Advised to increase fluids, call if s/s increase. Wilfrido EPPERSON. Apr 15 2020: TELEHEALTH NOB- Ismael is a 34 yo G 4 P 1 with DEMARCO 10-28-20 planning a RCS at [facility] with [facility], using [facility] for post disch ped care and to breastfeed. She is to Kavon and they have a 2 yo son, Kar. Ismael had a long labor and second stage with a PCS because he was stuck. 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 Kavon had osteosarcoma during her last but has been cancer free now for two years. Ismael is allergic to latex, Celexa and codeine. She has asthma, endometriosis and MTHFR and DAVIDSON-1 4 G/5 G (two blood clotting issues.) She's had bronchitis, pneumonia and mono. Her meds include Lovenox, promethazine, Prometrium and Zofran. She is a lifetime non smoker, denies street drug use and drinks alcohol occ but not in pg. She eats a well balanced diet with minimal dairy. More than one serving daily causes stomach cramps. Her Vitamin D level is low but she hasn't started the supplement yet or vitamins due to NVP. Normally she'd drink 6-8 glasses of water daily and be active by walking or jogging. Warning signs in pg reviewed along with wearing her seatbelt low on her abdomen, the importance of protein in her diet when she can and increasing water intake to as close to one gallon daily as she's able. They have a copy of What to Expect. Ismael has had a varicella vaccine. They have a cat but she does not deal with the litter. Kar was born at 37 weeks but successfully breastfed for one year. No classes are needed. Enc to call with any concerns or questions they may have. Visit lasted 40 min. Wilfrido EPPERSON. Apr 12 2020: Ismael is here for a PNV. No FM felt yet. Complains of nausea, vomiting, headaches, back ache, and hot flash spells. Taking Zofran as directed, no improvement noticed. paperwork completed. MK Apr 12 2020: Urine long dip shows moderate ketones. LMT Apr 12 2020: Discussed aneuploidy screening results. Reviewed benefits, limitations of each. Resume promethazine at 12.5mg q4h around the clock. Continu e Zofran. Long dip +ketones, mild dehydration. Continue Lovenox. d/c progesterone next week. Mar 08 2020: Excited about . Has mild lower abdominal cramping intermittently. US today confirms living IUP with appropriate interval growth from prior, 6w4d by LMP c/w today's US, DEMARCO 10/28/19. Ok for travel. Avoid hot tubs during vacation. Nausea worsening, but is taking Zofran prn up to once daily. Advised to take q8h atc. If no improvement after 48h, then may call for additional antiemetic. NEW Feb 27 2020: Ismael is here for missed menses appt. She relates LMP of 12/23, +UPT today in office, EDC 09/29/20. She is having mild nausea, taking Zofran for nausea but relates longstanding history of nausea and emesis in the pm. She has had work-up with PCP so far that is negative. Awaiting further testing done. She relates that her son has been diagnosed with RA and some other auto immune disorder and they also feel like he has a genetic disorder. This testing will be done as they can gather more information. She is on Lovenox, Prometrium, and PNV. Asking if she should go back to work? She was off for her son until they figured out his chronic fevers. The medication he is on currently has helped signficantly. Current on pap. Culture will be done today. U/S for dating will be done also. LMT Feb 27 2020: as above. Nausea improved with Zofran with emesis up to 3- 4x/week. She had RUQP and was sent for studies and found out she was . She is uncertain of LMP, last normal one was 12/23, but she had spotting in January also. She was not attempting thus this is a surprise, but she and , Maximo, are happy about it. No recent travel. 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 larry Dec 07 2019: Ismael is here for colposcopy. WNL pap with +hr HPV. LMP reported as 11/27, negative UPT. Procedure reviewed and consent is signed. She relates she has been very concerned with this result. Feels like what she read made her feel like she is likely dying. Advised pap was WNL but she was Positive for hrHPV testing. Reviewed cervical disorders with compiant patients are usually very well controlled. Dr SHIN will direct needed care that will prevent an invasive disorder. Most with HPV will clear on their own. She is taking good multi-vitamin but has been tearful that something bad will be happening. Her had cancer and her son has been ill. He is being worked up with [employer] currently. Stress reduction techniques and to call us with worries or concerns. LMT Nov 14 2019: Ismael is here for her annual. LMP 10/31/2019. She is due for a pap today, consents signed. PHQ-9 filled out with a score of . Updated history, medications and allergies. She states that she is still producing milk, she hasn't breastfed in almost a year, previously was prescribed Cabergoline to treat. Will check prolactin levels. MK REVIEW OF SYSTEMS: GENERAL - Denies fever, or chills SKIN - Denies rash, new skin lesions, or change in moles EYES - Denies blurred vision, or change in visual acuity EARS - Denies ear pain, or difficulty hearing NOSE - Denies nasal congestion, discharge, or bleeding MOUTH - Denies sore throat, or difficulty swallowing NECK - Denies pain or swelling RESPIRATORY - Denies shortness of breath, cough, wheezing CARDIOVASCULAR - Denies palpitations, chest pain, orthopnea, PND, peripheral edema, syncope or claudication GASTROINTESTINAL - Denies nausea, vomiting, diarrhea, constipation, Denies abdominal pain, melena and or bright red blood GENITOURINARY - Denies dysuria, frequency of urination, urgency, or hesitancy MUSCULOSKELETAL - Denies joint or muscle pain, or back pain NEUROLOGICAL - Denies localized numbness, weakness, or tingling PSYCHIATRIC - Denies depression, anxiety, substance abuse or suicide attempts ENDOCRINE - Denies heat or cold intolerance, weight loss or gain, increasing thirst HEMATO-IMMUNOLOGIC - Denies easy bruising, bleeding, oral ulcerations or recurrent infections GENETICS SCREENING: Age 35+ years: No Thalassemia: No Neural Tube Defect: No Down Syndrome: No KAYLIN-SACHS: No Sickle Cell Disease: No Hemophilia: No Musc. Dystrophy: No Cystic Fibrosis: No-declines screening Partridge Chorea: No Mental Retardation: No Fragile X: No Other genetic: No Other defects: No SABs/still births: Yes x2 Drugs since LMP: Yes INFECTION HISTORY: High risk AIDS: No High risk Hepatitis: No Exposed to TB: No Exposed to Herpes: No Rash/viral illness since LMP: No History of STD: No MENSTRUAL HISTORY: *Menses Amount/Duration: 5 daysMenses Regularity: RegularFrequency: monthlyMenarche (Age Onset): 13* PAST SUMMARY: PARITY: 1. Total Pregnancies............ 4 2. Full Term Pregnancies........ 1 3. Premature.................... 0 4. Abortions - Induced.......... 0 5. Abortions - Spontaneous...... 2 6. Ectopics..................... 0 7. Multiple Births.............. 0 8. Living Children.............. 1 PAST #1: Date of :.................. 06/06/16 Gestation Weeks:................ 3 Length of labor(hours):......... 0 Sex:............................ UNKNOWN Weight-lbs:............... 0 Weight-oz:................ 0 Type of Delivery:............... Vag Type of Anesthesia:............. General Place of Delivery:.............. [place] Treatment of Labor?:.... No Comment: DONA DJerica PAST #2: Date of :.................. 01/04/17 Gestation Weeks:................ 7 Length of labor(hours):......... 0 Sex:............................ UNKNOWN Weight-lbs:............... 0 Weight-oz:................ 0 Type of Delivery:............... Vag Type of Anesthesia:............. General Place of Delivery:.............. [place] Treatment of Labor?:.... No Comment: DONA Zuluaga PAST #3: Date of :.................. 12/31/17 Gestation Weeks:................ 37 Length of labor(hours):......... 17 Sex:............................ M Weight-lbs:............... 6 Weight-oz:................ 14 Type of Delivery:............... C-Sect Type of Anesthesia:............. Epidural Place of Delivery:.............. [place] Treatment of Labor?:.... No Comment: NO PHYSICAL EXAMINATION General Appearence: 35 yo female in no acute distress Vital Signs: AF, VSS Heart: RRR without rubs or gallops Lungs: CTA x 2 Breasts: deferred Abdomen: gravid Pelvis: Cervix: 8-9/85 with membranes intact Presentation: cephalic Station: 0 Fetus: Size: AGA Movement: present Heart: present Impression /Plan: 36+5 week intrauterine in active labor for repeat C- section and tubal. We briefly discussed proceeding with vaginal after C- section but patient declines given that she had a labor with 11 hours of pushing followed by a hematoma on her babies head after a long labor with the last . Operative report indicates that patient pushed 3 hours and had a section for failure to progress. Some lower abdominal adhesions were noted at the time of that surgery. Preparations in progress for delivery.
--- NOTE | 2020-10-05 02:40 | PCM.OPRPT ---
Delivery Classification: ANTONIO Final DEMARCO: 10/28/20 Final DEMARCO Source: US <20 weeks Gestational age: 36 Weeks and 5 Days associate professor of theology: Marilynn Correa Type of Anesthesia:: Spinal - With Duramorph Date of Procedure: 10/05/20 Pre-Operative Diagnosis: Prior and Desires Permanent Sterilization Post-Operative Diagnosis: Prior and Desires Permanent Sterilization Description of Procedure: Surgeon: Wood Meadows MD, FACOG Anesthesia: Lisa Coteat, MOLD SANDER Procedure: Repeat Low Transverse Cervical Caesarean Section And Right Salpingectomy (Left Tube Absent) Findings: Viable female infant with Apgars of 8/9 in occiput anterior presentation with clear amniotic fluid and normal three-vessel placenta. The left fallopian tube and ovary were absent. The right fallopian tube and ovary appeared normal. Dense adhesions of the omentum were noted to the anterior abdominal wall. Indication: This is a 35-year-old who presents in labor for her second at 36+5 weeks gestation. care has otherwise been uneventful except for a single prior section. Patient also desires permanent sterilization. She has been counseled regarding the permanent nature of her tubal, the failure rate of 1 to 2%, and the availability of other nonpermanent control options. The patient has been counseled regarding the risk and indications of this procedure including the possibility of bleeding infection and injury to surrounding structures such as bowel bladder. All questions were answered. Procedure: Patient was taken to the operating room where after spinal anesthesia was placed, the patient was prepped and draped in usual sterile fashion and a latex free Ram catheter was placed. The abdomen was entered through the patient's prior Pfannenstiel incision and peritoneum was entered bluntly. After developing a bladder flap on the lower uterine segment a low transverse incision was made on the uterus and head was delivered onto the operative field the nose mouth and oropharynx were bulb suctioned. Subsequently a viable female infant was born with Apgars of 8/9. The infant was noted to cry move all extremities vigorously on the operative field. The umbilical cord was doubly clamped and ligated and infant handed to the nursery personnel who were present for the delivery. Placenta was delivered and noted to be 3 vessels and normal. Uterus was exteriorized and remaining placental tissue was removed. The uterus was then closed in 2 layers first with running locked 0 Vicryl suture followed by a second imbricating layer with 0 Vicryl suture. 0 Vicryl suture was then used in a horizontal mattress interrupted fashion to affect final hemostasis of the uterine incision line. Normal right fallopian tube and ovary was visualized and a LigaSure device was used to divide the mesosalpinx and right fallopian tube base. The uterus was returned to the pelvis. Omental adhesions were ligated with the LigaSure device. Hemostasis was noted and rectus abdominis muscles were reapproximated in the midline with interrupted Number 0 Vicryl suture in a horizontal mattress fashion. Fascia was closed with running Number 1 PDS Strata fix suture. Subcutaneous tissue was irrigated with copious amounts of saline solution and then closed with running 3-0 Vicryl suture. Skin was closed with 4-0 monocryl suture in a running subcuticular fashion. Steri strips and a Mepilex dressing were placed across the incision. The patient tolerated the procedure well and was taken to the recovery room in satisfactory condition. Sponge, needle, and instrument counts were all reportedly correct. EBL was less than 750 cc. Ancef 2 gms IV was given prior to the procedure. Spicemen to Pathology: None Complications: None Amniotic Fluid Description: Clear Placenta Disposition: [facility] Specimen(s) sent to pathology: None Drain: Ram to straight drain Cord Entanglement: None Esitmated Blood Loss (ml): 500 cc Infant Gender: Male (1 minute): 8 (5 minute): 9 Antibiotic Given: Ancef 2 grams IV x1 Pt instructed on risks of surgery: Bleeding, Anesthesia Risks, Infection, Permanency, Failure Rate of 1 to 2%, Injury to surrounding structure(s) including bowel and bladder, Availability of other non-permanent control options Complications: None - Admit VTE Documentation VTE Present on Admission: Yes VTE Mechan Device Prophylaxis: SCD's VTE Pharm Prophylaxis ordered?: Yes
[2020-10-05] MEDS: Sodium Citrate/Citric Acid 30 ML UDC PO (02:46)
[2020-10-05] MEDS: Acetaminophen 500 MG Tablet 1000 MG PO ×4 (02:48→21:35)
--- NOTE | 2020-10-05 02:48 | DCINST_ITS ---
<Wood Meadows - Last Filed: 10/05/20 02:48> Discharge Diet: No Restrictions Discharge Activity: May not drive while taking narcotic pain medications., May Shower, May Take a Tub Bath May resume sexual activity in: 4-6 weeks Lifting Restrictions: 20 pounds Additional Activity Instructions:: Nothing in the vagina for 4-6 weeks. You may return to work/school in 6 weeks. Call your doctor if your incision/area has: Continuous Slow Oozing, Sudden Increased Bleeding, Increased Pain/ Swelling, Increased Redness, Foul Smelling Discharge Call your doctor if you observe: Fever of 101 or Higher, Inability to urinate, Inability to have a bowel movement, Using more than one pad per hour Additional Instructions: If you experience any of the following, contact your healthcare provider. * Bleeding that soaks a pad every hour for 2 hours * Fever 100.4 or higher * Unrelieved incision or abdominal pain * Swelling, redness, discharge or bleeding from your incision or episiotomy site * Your incision begins to separate * Problems urinating (including inability to urinate or burning while urinating). * Visual changes * Severe headache * Flu-like symptoms * Pain or redness in one of both of your breasts * Pain, warmth, tenderness or swelling in your legs, especially the calf area * Frequent nausea and vomiting * Symptoms of depression or anxiety If you experience any of the following, call 911 or go to the nearest Emergency Room. * Chest pain * Problems breathing * Seizure activity * Partial or complete paralysis of a body part, slurred speech, weakness or drooping of the face, or a sudden inability to walk or hold your balance Allergies/Adverse Reactions: Allergies citalopram hydrobromide [From Celexa] Allergy (Verified 10/04/20 23:42) Shortness of breath latex Allergy (Verified 10/04/20 23:42) Hives codeine Adverse Reaction (Verified 10/04/20 23:42) Vomiting Medications to take at Discharge Aspirin [Aspirin, Baby] 81 mg PO DAILY 09/12/20 Docusate Sodium [Colace] 100 mg PO BID PRN PRN #60 cap 10/05/20 Oxycodone [Oxyir] 5 mg PO Q6H PRN PRN 7 Days #20 tab 10/05/20 The following prescriptions were given: Docusate Sodium [Colace] 100 mg PO BID PRN PRN #60 cap PRN Reason: Constipation Transmission Status: Received by [id number] Oxycodone [Oxyir] 5 mg PO Q6H PRN PRN 7 Days #20 tab PRN Reason: Pain Score 6-10 Transmission Status: Received by [id number] Follow-Up: Call to make an appointment with your doctor for an incision check in 1-2 weeks. You will also need a 6 week post- follow up appointment. Test results from this visit will be discussed in further detail at your follow- up appointment, if applicable. Please Follow Up With: Brandy Wilson MD - [phone] When: Call to make an appointment for an incision check in 2 weeks. <Eve Tuttle - Last Filed: 10/07/20 08:36> Additional Instructions: If you experience any of the following, contact your healthcare provider. * Bleeding that soaks a pad every hour for 2 hours * Fever 100.4 or higher * Unrelieved incision or abdominal pain * Swelling, redness, discharge or bleeding from your incision or episiotomy site * Your incision begins to separate * Problems urinating (including inability to urinate or burning while urinating). * Visual changes * Severe headache * Flu-like symptoms * Pain or redness in one of both of your breasts * Pain, warmth, tenderness or swelling in your legs, especially the calf area * Frequent nausea and vomiting * Symptoms of depression or anxiety If you experience any of the following, call 911 or go to the nearest Emergency Room. * Chest pain * Problems breathing * Seizure activity * Partial or complete paralysis of a body part, slurred speech, weakness or drooping of the face, or a sudden inability to walk or hold your balance Follow-Up: Call to make an appointment with your doctor for an incision check in 1-2 weeks. You will also need a 6 week post- follow up appointment. Test results from this visit will be discussed in further detail at your follow-up appointment, if applicable.
[2020-10-05] MEDS: Cefazolin 2 GM in 0.9% Normal Saline 100 ML IV (02:55)
[2020-10-05] MEDS: Oxytocin 30 units/NS 500 ml 30 UNITS/500 ML IV.SOLN 167 UNITS IV (04:25)
--- NOTE | 2020-10-05 05:33 | NURSING ---
this RN assessed pt fundus in OR1 prior to coming back to room 6 for recovery. large amount (300cc) bright red bleeding with fundal check. fundus was always firm, midline. battery charger tester luisa felt fundus, as well. dionne care provided in OR and then both RNs checked bleeding again and WNL. pt took back to recovery room for the immediate post op assessment.
[2020-10-05 05:43] LABS: Pathology Specimen OB SEE PATHOLOGY REPORT
--- NOTE | 2020-10-05 05:58 | NURSING ---
decision time for ANTONIO repeat csection 0219.
[2020-10-05] MEDS: Lactated Ringers 1,000 ML 100 ML IV (07:25)
--- NOTE | 2020-10-05 07:39 | NURSING ---
FOB and mother both cpr certified.
[2020-10-05] MEDS: Ketorolac 30 MG/ML Syringe IV ×3 (10:44→22:37)
[2020-10-05] MEDS: Senna/Docusate Sodium 1 Tablet PO (10:44)
[2020-10-05] MEDS: Cefazolin 1 GM/50 ML BAG IV ×2 (11:46→19:52)
[2020-10-05] MEDS: Enoxaparin 40 MG/0.4 ML Syringe SC (15:28)
[2020-10-05] MEDS: 0.9% Saline Lock 10 ML Syringe IV ×2 (16:38→19:52)
[2020-10-06 01:45] VITALS: PULSE 78; RESP 16; O2SAT 97
[2020-10-06] MEDS: Acetaminophen 500 MG Tablet 1000 MG PO ×4 (04:40→21:38)
[2020-10-06] MEDS: 0.9% Saline Lock 10 ML Syringe IV (04:40)
[2020-10-06] MEDS: Ketorolac 30 MG/ML Syringe IV (04:40)
[2020-10-06] MEDS: Enoxaparin 40 MG/0.4 ML Syringe SC ×2 (04:41→15:43)
[2020-10-06 04:50] VITALS: BP 128/78; PULSE 85; RESP 18; TEMP 36.6; O2SAT 97
[2020-10-06 05:34] LABS: Hematocrit 26.9 % (37-47); Hemoglobin 8.6 g/dL (12.0-15.0); Mean Corpuscular Hgb 25.3 pg (27.0-32.0); Mean Corpuscular Volume 79.1 fL (81-99); Platelet Count 162 K/mm3 (150-450); RBC Distribution Width CV 14.3 % (11.6-14.6); RBC Distribution Width SD 40.9 fl (35.1-43.9)
[2020-10-06 07:30] VITALS: BP 123/84; PULSE 77; RESP 18; TEMP 36.4; O2SAT 97
--- NOTE | 2020-10-06 09:48 | PN.OBGYN_ITS ---
Subjective: Patient without complaints. Tolerating diet well. Positive flatus. Minimal vaginal bleeding reported. Baby needs to stay until tomorrow. Objective: Mepilex dressing is clean, dry. Good urine output. Hemoglobin stable. - Physical Exam Vitals/I&O's: Vital Signs Temp Pulse Resp BP Pulse Ox 97.5 F L 77 18 123/84 H 97 10/06/20 07:30 10/06/20 07:30 10/06/20 07:30 10/06/20 07:30 10/06/20 07:30 Oxygen Delivery Method Room Air Weight: 225 lb 1.471 oz Body Mass Index (BMI) 41.1 Intake and Output for Last 24 Hours 10/04/20 10/05/20 10/06/20 23:59 23:59 23:59 Intake Total 2835.00 / 2835.00 Output Total 950 / 950 Balance 1885.00 / 1885.00 Microbiology Past 72 Hours 10/05/20 Unknown Mucosa - Nose SARS-CoV-2 Antigen (Rapid) - Final Laboratory Results 10/06/20 04:55: WBC 9.0, RBC 3.40 L, Hgb 8.6 L, Hct 26.9 L, MCV 79.1 L, MCH 25.3 L, MCHC 32.0, RDW Std Deviation 40.9, RDW Coeff of Ld 14.3, Plt Count 162, MPV 13.0 H Current Medications Acetaminophen (Acetaminophen 500 Mg Tablet) 1,000 mg PO Q6H [facility] Last Admin: 10/06/20 04:40 Dose: 1,000 mg Documented by: Al Hydroxide/Mg Hydroxide (Mag Hydrox/Al Hydrox/Simeth 30 Ml Udc) 15 - 30 ml PO Q4H PRN PRN PRN Reason: INDIGESTION Bisacodyl (Bisacodyl 10 Mg Suppository) 10 mg RECTAL UD PRN PRN Reason: If no BM Enoxaparin Sodium (Enoxaparin 40 Mg/0.4 Ml Syringe) 40 mg SC BID@0400,1600 [facility] Last Admin: 10/06/20 04:41 Dose: 40 mg Documented by: Hydrocortisone (Hydrocortisone 2.5% Crm) 1 applic TOPICAL TID PRN PRN; Protocol PRN Reason: Discomfort Ibuprofen (Ibuprofen 600 Mg Tablet) 600 mg PO Q6H [facility] Last Admin: 10/06/20 02:57 Dose: Not Given Documented by: Methylergonovine Maleate (Methylergonovine 0.2 Mg/Ml Ampul) 0.2 mg IM X1 PRN PRN Reason: Uterine Atony Naloxone HCl (Naloxone 0.4 Mg/Ml Syringe) 0.02 mg IV Q1M PRN PRN Reason: RR <10 and pt unresponsive Ondansetron HCl (Ondansetron 4 Mg/2 Ml Vial) 4 mg IV Q4H PRN PRN PRN Reason: Nausea Oxycodone HCl (Oxycodone 5 Mg Tablet) 5 - 10 mg PO Q4H PRN PRN PRN Reason: Pain Score 4-10 Prochlorperazine Edisylate (Prochlorperazine 10 Mg/2 Ml Vial) 10 mg IV Q6H PRN PRN PRN Reason: NAUSEA Senna/Docusate Sodium (Senna/Docusate Sodium 1 Tablet) 0 tablet PO DAILY [facility] Last Admin: 10/05/20 10:44 Dose: 1 tablet Documented by: Simethicone (Simethicone 80 Mg Tablet) 80 mg PO PCHS PRN PRN Reason: Indigestion/stomach pain Sodium Chloride (0.9% Saline Lock 10 Ml Syringe) 5 - 15 ml IV PRN PRN PRN Reason: SALINE FLUSH Last Admin: 10/06/20 04:40 Dose: 10 ml Documented by: Medical Necessity - Tobacco Use Smoking Status: Never smoker Assessment/Plan All Active Problems (This Medical Record has been edited. Action required.) First trimester bleeding (Acute) Inevitable spontaneous (Acute) Spontaneous (Acute) Spontaneous complicated by genital tract and pelvic infection (Acute) RUQ abdominal pain (Acute) Transaminitis (Acute) labor in second trimester without delivery (Acute) 37 weeks gestation of (Acute) Arrest of descent, delivered, current hospitalization (Acute) delivery delivered (Acute) 29 weeks gestation of (Acute) contractions (Acute) Doing well postoperative day #1 status post repeat and tubal. Anticipate discharge tomorrow if present good progress continues.
[2020-10-06] MEDS: Senna/Docusate Sodium 1 Tablet PO (10:40)
[2020-10-06] MEDS: Ibuprofen 600 MG Tablet PO ×3 (10:43→21:44)
[2020-10-06 13:15] VITALS: BP 112/57; PULSE 98; RESP 18; TEMP 36.7; O2SAT 99
[2020-10-06 19:50] VITALS: BP 130/77; PULSE 86; RESP 16; TEMP 36.7; O2SAT 96
[2020-10-07 02:45] VITALS: BP 136/61; PULSE 83; RESP 16; TEMP 36.7; O2SAT 96
[2020-10-07] MEDS: Enoxaparin 40 MG/0.4 ML Syringe SC (04:09)
[2020-10-07] MEDS: Ibuprofen 600 MG Tablet PO ×2 (04:09→10:46)
[2020-10-07] MEDS: Acetaminophen 500 MG Tablet 1000 MG PO ×2 (04:41→10:45)
[2020-10-07 08:00] VITALS: BP 144/81; PULSE 84; RESP 16; TEMP 36.6
--- NOTE | 2020-10-07 08:36 | PCM.PN.OB ---
Subjective: POD#2 Feeling well. Minimal lochia. Less sore today. - Physical Exam Vitals/I&O's: Vital Signs Temp Pulse Resp BP Pulse Ox 97.8 F 84 16 144/81 H 96 10/07/20 08:00 10/07/20 08:00 10/07/20 08:00 10/07/20 08:00 10/07/20 02:45 Oxygen Delivery Method Room Air Weight: 102.1 kg Body Mass Index (BMI) 41.1 Intake and Output for Last 24 Hours 10/05/20 10/06/20 10/07/20 23:59 23:59 23:59 Intake Total 2835.00 / 2835.00 Output Total 950 / 950 Balance 1885.00 / 1885.00 General: Alert, Oriented x3, No apparent distress HEENT: Atraumatic, Normocephalic Neck: Supple Lungs: Normal air movement Cardiovascular: Regular rate Abdomen: Non Tender, Non-Distended - dressing c/d Extremities: Edema - Trace Skin: No rashes Neurological: Cranial nerves II-XII grossly intact Psych/Mental Status: Normal Affect Microbiology Past 72 Hours 10/05/20 Unknown Mucosa - Nose SARS-CoV-2 Antigen (Rapid) - Final Current Medications Acetaminophen (Acetaminophen 500 Mg Tablet) 1,000 mg PO Q6H [facility] Last Admin: 10/07/20 04:41 Dose: 1,000 mg Documented by: Al Hydroxide/Mg Hydroxide (Mag Hydrox/Al Hydrox/Simeth 30 Ml Udc) 15 - 30 ml PO Q4H PRN PRN PRN Reason: INDIGESTION Bisacodyl (Bisacodyl 10 Mg Suppository) 10 mg RECTAL UD PRN PRN Reason: If no BM Enoxaparin Sodium (Enoxaparin 40 Mg/0.4 Ml Syringe) 40 mg SC BID@0400,1600 [facility] Last Admin: 10/07/20 04:09 Dose: 40 mg Documented by: Hydrocortisone (Hydrocortisone 2.5% Crm) 1 applic TOPICAL TID PRN PRN; Protocol PRN Reason: Discomfort Ibuprofen (Ibuprofen 600 Mg Tablet) 600 mg PO Q6H [facility] Last Admin: 10/07/20 04:09 Dose: 600 mg Documented by: Methylergonovine Maleate (Methylergonovine 0.2 Mg/Ml Ampul) 0.2 mg IM X1 PRN PRN Reason: Uterine Atony Naloxone HCl (Naloxone 0.4 Mg/Ml Syringe) 0.02 mg IV Q1M PRN PRN Reason: RR <10 and pt unresponsive Ondansetron HCl (Ondansetron 4 Mg/2 Ml Vial) 4 mg IV Q4H PRN PRN PRN Reason: Nausea Oxycodone HCl (Oxycodone 5 Mg Tablet) 5 - 10 mg PO Q4H PRN PRN PRN Reason: Pain Score 4-10 Prochlorperazine Edisylate (Prochlorperazine 10 Mg/2 Ml Vial) 10 mg IV Q6H PRN PRN PRN Reason: NAUSEA Senna/Docusate Sodium (Senna/Docusate Sodium 1 Tablet) 0 tablet PO DAILY [facility] Last Admin: 10/06/20 10:40 Dose: 1 tablet Documented by: Simethicone (Simethicone 80 Mg Tablet) 80 mg PO PCHS PRN PRN Reason: Indigestion/stomach pain Sodium Chloride (0.9% Saline Lock 10 Ml Syringe) 5 - 15 ml IV PRN PRN PRN Reason: SALINE FLUSH Last Admin: 10/06/20 04:40 Dose: 10 ml Documented by: Medical Necessity - Tobacco Use Smoking Status: Never smoker Assessment/Plan All Active Problems (This Medical Record has been edited. Action required.) First trimester bleeding (Acute) Inevitable spontaneous (Acute) Spontaneous (Acute) Spontaneous complicated by genital tract and pelvic infection (Acute) RUQ abdominal pain (Acute) Transaminitis (Acute) labor in second trimester without delivery (Acute) 37 weeks gestation of (Acute) Arrest of descent, delivered, current hospitalization (Acute) delivery delivered (Acute) 29 weeks gestation of (Acute) contractions (Acute) POD#2 s/p repeat section. Acute blood loss anemia secondary to surgery, iron at home. MTHFR/DAVIDSON-1 heterozygote, no longer on lovenox per M (no need at this time). Follow up in office 2w for incision check. Home today.
[2020-10-07] MEDS: Senna/Docusate Sodium 1 Tablet PO (10:46)
== END 2020-10-07 12:30 | disposition home or self-care (01) | DRG 539 ==
LOC: WPOUT 01:40 → WP 01:40
PROVIDERS: Admitting Provider Obstetrics & Gynecology; Visit Provider Obstetrics & Gynecology
DX: O60.14X0 Preterm labor third trimester with preterm delivery third trimester, not applicable or unspecified (principal); Z3A.36 36 weeks gestation of pregnancy; Z37.0 Single live birth
CPT/HCPCS: 59025; 59050; 85025; 85027; 86850; 86900; 86901; 87426; 88302; 99218; J7120; A4216; G0378; J0702

== ENCOUNTER → 2020-11-28 14:00 | Outpatient (CLI) | payer MEDICAID, SELFPAY ==
[2020-10-04 23:41] VITALS: BMI 41.1
[2020-12-03 16:17] LABS: HPV APTIMA, High Risk Negative (Negative); HPV Reflexed? YES, CHARGE PATIENT
== END ==
PROVIDERS: Visit Provider Obstetrics & Gynecology
DX: Z12.4 Encounter for screening for malignant neoplasm of cervix (principal)
CPT/HCPCS: 87624; 88175; G0145

== ENCOUNTER → 2021-07-18 08:22 | Outpatient (CLI) | payer MEDICAID, SELFPAY ==
--- NOTE | 2021-07-18 08:25 | CT_ITS ---
STUDY: CT MAXILLOFACIAL SINUSES REASON FOR EXAM: Female, 36 years old. Left facial injury. RADIATION DOSAGE (If Supplied By Facility): CTDIvol = ( 33.06 ) mGy, DLP = ( 825.58 ) mGycm TECHNIQUE: The patient was scanned in a multi detector CT scanner. High resolution axial imaging was performed without the administration of intravenous contrast material. Sagittal and coronal images were reconstructed. Individualized dose optimization techniques were used for this CT. COMPARISON: None. FINDINGS: FRONTAL SINUSES: Normal aeration, without mucosal inflammatory disease. ETHMOIDAL SINUSES: Normal aeration, without mucosal inflammatory disease. MAXILLARY SINUSES: Normal aeration, without mucosal inflammatory disease. SPHENOIDAL SINUSES: Normal aeration, without mucosal inflammatory disease. There is patency of the bilateral maxillary infundibuli with normal uncinate processes, ethmoid bullae, and hiatus semilunaris. Normal bilateral middle turbinates. Normal bilateral inferior turbinates. There is a left sided nasal septal deviation, but without a nasal septal spur. There is patency of the bilateral nasal airways. The visualized osseous structures are normal. The visualized bilateral orbital contents are normal. CT/Sinus/Facial Bone IMPRESSION: Normal CT examination of the maxillofacial sinuses. Electronically Signed: Celestine Dozier MD at 13:13 EDT , Service support ,
== END ==
PROVIDERS: Visit Provider Otolaryngology
DX: J32.8 Other chronic sinusitis (principal)
CPT/HCPCS: 70486

== ENCOUNTER → 2021-09-12 15:38 | Outpatient (CLI) | payer MEDICAID, SELFPAY ==
[2021-09-12 17:23] LABS: T3 Total - Triiodothyronine 1.19 ng/mL (0.6-1.81)
[2021-09-12 17:32] LABS: Estradiol 629.1 pg/mL; Follicle Stimulating Hormone 3.2 mIU/mL; Free T3 2.8 pg/mL (2.18-3.98); Prolactin 14.5 ng/mL; T4 Free Direct 0.89 ng/dL (0.76-1.46); Thyroid Stim Hormone (TSH) 0.99 uIU/mL (0.358-3.74)
[2021-09-12 19:38] LABS: hCG Titer Quant., Serum < 1 mIU/mL (1-3)
[2021-09-18 07:28] LABS: Anti-Mullerian Hormone,Serum 0.754 ng/mL (.)
== END ==
PROVIDERS: Visit Provider Obstetrics & Gynecology
DX: N92.5 Other specified irregular menstruation (principal)
CPT/HCPCS: 36415; 82670; 83001; 83516; 84146; 84439; 84443; 84480; 84481; 84702

== ENCOUNTER → 2021-10-01 09:03 | Outpatient (CLI) | payer MEDICAID, SELFPAY ==
--- NOTE | 2021-10-01 09:06 | US_ITS ---
STUDY: ULTRASOUND BREAST - LEFT REASON FOR EXAM: Female, 36 years old. Palpable mass TECHNIQUE: Axial and longitudinal images of the LEFT breast were performed with a high resolution ultrasound transducer. # OF IMAGES: 18 COMPARISON: Diagnostic mammogram earlier today FINDINGS: LEFT Breast: Homogeneous family background echotexture. Multiple longitudinal and transverse ultrasound images of the axillary tail of left breast failed to demonstrate a discrete solid or cystic mass or lymphadenopathy. A normal axillary lymph node is identified.: US/Breast Limited Unilateral IMPRESSION: Normal left breast ultrasound. ASSESSMENT CATEGORY: BIRADS Category 1: Negative. A letter regarding these results will be sent to the patient by the facility within 30 days. Electronically Signed: Adalberto Velazquez MD at 11:21 EST Tel , Service support ,
--- NOTE | 2021-10-01 09:06 | BI_ITS ---
MAMMOGRAPHY - BILATERAL DIAGNOSTIC REASON FOR EXAM: Female, 36 years old. LUMP PERTINENT HISTORY: Non-contributory. TECHNIQUE: Digital examination. Mediolateral oblique (MLO) and craniocaudad (CC) views of both breasts were obtained. CAD: COMPARISON: None. FINDINGS: Breast Composition: The breasts are heterogeneously dense, which may obscure small masses. There are no dominant masses or suspicious calcifications. No other significant abnormalities are identified. BI/DIAG MAMM W/CAD, BILAT IMPRESSION: Stable bilateral diagnostic mammogram. Ultrasound of the palpable abnormality will be obtained. ASSESSMENT CATEGORY: BIRADS Category 0: Incomplete. Need additional imaging evaluation. A letter regarding these results will be sent to the patient by the facility within 30 days. FOLLOW UP RECOMMENDATION: Ultrasound Recommended. (I) Approximately 10% of breast cancers are not detected by mammography. A normal mammogram should not delay biopsy of a clinically suspicious abnormality. Electronically Signed: Adalberto Velazquez MD at 10:07 EST Tel , Service support ,
== END ==
PROVIDERS: Referring Provider Obstetrics & Gynecology; Visit Provider Obstetrics & Gynecology
DX: N63.32 Unspecified lump in axillary tail of the left breast (principal)
CPT/HCPCS: 76642; 77062; 77066; G0279

== ENCOUNTER → 2021-10-02 | Outpatient (CLI) | payer MEDICAID, SELFPAY | END | disposition home or self-care (01) | PROVIDERS: Visit Provider Obstetrics & Gynecology | DX: Z11.3 Encounter for screening for infections with a predominantly sexual mode of transmission (principal); N77.1 Vaginitis, vulvitis and vulvovaginitis in diseases classified elsewhere ==

== ENCOUNTER 2021-10-13 08:48 | Outpatient (CLI) | payer MEDICAID, SELFPAY ==
[2021-10-13 14:13] LABS: Estradiol 112.5 pg/mL; Follicle Stimulating Hormone 6.6 mIU/mL
== END 2021-10-13 23:59 | disposition short-term general hospital (02) ==
LOC: WOBLAB 08:49
PROVIDERS: Visit Provider Obstetrics & Gynecology
DX: N80.8 Other endometriosis (principal); N92.5 Other specified irregular menstruation
CPT/HCPCS: 36415; 82670; 83001

== ENCOUNTER → 2022-04-14 | Outpatient (CLI) | payer MEDICAID, SELFPAY ==
[2022-04-14 13:10] LABS: Hematocrit 38.1 % (37-47); Mean Corp Hgb Conc 31.5 g/dL (32-36); Mean Corpuscular Hgb 25.9 pg (27.0-32.0); Mean Corpuscular Volume 82.3 fL (81-99); Mean Platelet Vol. 11.3 fl (6.2-12.0); Platelet Count 281 K/mm3 (150-450); RBC Distribution Width CV 14.5 % (11.6-14.6); RBC Distribution Width SD 42.5 fl (35.1-43.9); Red Blood Count 4.63 M/mm3 (4.2-5.4); White Blood Count 7.1 K/mm3 (4.4-11.0)
[2022-04-14 13:45] LABS: Ferritin 32 ng/mL (8-252); Iron 86 ug/dL (50-170); Iron Binding Capacity,Total 297 ug/dL (250-450)
[2022-04-18 23:38] LABS: HPV APTIMA, High Risk Negative (Negative)
== END | disposition home or self-care (01) ==
LOC: LAB 12:49
PROVIDERS: Referring Provider Obstetrics & Gynecology; Visit Provider Obstetrics & Gynecology
DX: R53.83 Other fatigue (principal); N92.0 Excessive and frequent menstruation with regular cycle; Z12.4 Encounter for screening for malignant neoplasm of cervix
CPT/HCPCS: 36415; 82728; 83540; 83550; 85027; 87624; 88175; G0145

== ENCOUNTER → 2023-03-31 | Outpatient (CLI) | payer MEDICAID, SELFPAY ==
[2023-03-31 10:32] LABS: Hematocrit 39.4 % (37-47); Hemoglobin 12.4 g/dL (12.0-15.0); Mean Corp Hgb Conc 31.5 g/dL (32-36); Mean Corpuscular Hgb 25.6 pg (27.0-32.0); Mean Corpuscular Volume 81.2 fL (81-99); Mean Platelet Vol. 11.2 fl (6.2-12.0); Platelet Count 292 K/mm3 (150-450); RBC Distribution Width CV 14.1 % (11.6-14.6); RBC Distribution Width SD 41.6 fl (35.1-43.9); Red Blood Count 4.85 M/mm3 (4.2-5.4); White Blood Count 6.1 K/mm3 (4.4-11.0)
[2023-03-31 11:07] LABS: Glucose 75GTT - Fasting 89 mg/dL (70-99)
[2023-03-31 11:14] LABS: Insulin 75GTT - Fasting 12.7 mU/L (2.6-37.6)
[2023-03-31 11:15] LABS: T3 Total - Triiodothyronine 1.55 ng/mL (0.6-1.81)
[2023-03-31 11:16] LABS: Cholesterol 188 mg/dL (200); Estradiol 30.5 pg/mL; Follicle Stimulating Hormone 11.6 mIU/mL; High Density Lipoprotein 52 mg/dL; Prolactin 10.7 ng/mL; T4 Free Direct 0.85 ng/dL (0.76-1.46); Thyroid Stim Hormone (TSH) 1.35 uIU/mL (0.358-3.74); Triglycerides 106 mg/dL; Very Low Density Lipoprotein 21 mg/dL (5-40)
[2023-03-31 11:58] LABS: Insulin 75GTT - 30 MIN 58.2 mU/L (Not Estab.)
[2023-03-31 12:08] LABS: Glucose 75GTT - 30 minutes 143 mg/dL (100-160)
[2023-03-31 12:10] LABS: Glucose 75GTT - 60 minutes 144 mg/dL (100-160)
[2023-03-31 13:06] LABS: Thyroid Stim Hormone (TSH) 1.23 uIU/mL (0.358-3.74)
[2023-03-31 13:06] LABS: Prolactin 9.7 ng/mL; Thyroid Stim Hormone (TSH) 1.09 uIU/mL (0.358-3.74)
[2023-03-31 13:09] LABS: Glucose 75GTT - 120 minutes 114 mg/dL (70-140)
[2023-03-31 13:10] LABS: Insulin 75GTT - 120 min 42.2 mU/L (Not Estab.)
[2023-03-31 13:16] LABS: Insulin 75GTT - 60 min 84.4 mU/L (Not Estab)
[2023-04-04 22:06] LABS: 17-Hydroxyprogesterone 13 ng/dL (.)
[2023-04-05 15:42] LABS: Androstenedione 57 ng/dL (41-262); Testosterone, % Free 1.76 % (0.50-2.80); Testosterone, Total 23 ng/dL (8-60)
== END | disposition home or self-care (01) ==
LOC: LAB 09:56
PROVIDERS: Referring Provider Obstetrics & Gynecology; Visit Provider Obstetrics & Gynecology
DX: E28.9 Ovarian dysfunction, unspecified (principal); Z13.1 Encounter for screening for diabetes mellitus
CPT/HCPCS: 36415; 80061; 82157; 82306; 82533; 82627; 82670; 82951; 82952; 83001; 83498; 83525; 84146; 84270; 84402; 84403; 84439; 84443; 84480; 84481; 85027; 82626

== ENCOUNTER 2023-11-24 09:17 | Emergency (ER) | payer BC, SELFPAY ==
[2023-11-24 09:17] VITALS: BP 163/99; PULSE 71; RESP 14; TEMP 36.6; O2SAT 99; BMI 40.4
--- NOTE | 2023-11-24 09:25 | ED.VIS.GI ---
HPI HPI - GI History of Present Illness Chief Complaint: Abd Pain Informant: patient Abdominal Pain/Flank Pain Onset: Month(s) Context: Gradual Onset Timing: Continuous Quality: Aching Location: Diffuse Worsened by: Nothing Relieved by: Nothing Nausea/Vomiting/Emesis GI Symptom: Positive for Nausea; Negative for Vomiting Diarrhea/Melena/Hematochezia GI Symptom: Negative for Diarrhea, Melena or Hematochezia Associated Symptoms Associated Symptoms: Negative for Dysuria, Frequency or Hematuria Narrative Narrative: Patient presents with abdominal pain that has been constant for the past 2 months. Patient states that she had a total abdominal hysterectomy in September. Patient states she has been having pain since that time. Patient states she went back for a laparoscopy which did not show any acute abnormality. Patient states that she was told that the surgeon was not sure if he accidentally nicked her urethra during the surgery. Patient denies any dysuria or hematuria however. Patient describes her pain as aching. Patient states nothing makes it better nothing makes it worse. Patient admits to some nausea but denies any vomiting. Patient denies any diarrhea, melena, or hematochezia. Patient states she had her surgeries done at [facility] in [place] by Dr. Garcia [facility] Medical History (Updated 11/24/23 @ 13:[address] 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 Endometriosis Endometriosis determined by laparoscopy Migraines DAVIDSON-1 4G/5G genotype Home Medications aspirin 81 mg chewable tablet 81 mg PO DAILY clotting prevention 09/12/20 [History Last Taken 10/03/20 08:00] docusate sodium 100 mg capsule 100 mg PO BID PRN PRN Constipation #60 caps 10/05/20 [Rx Last Taken Unknown] Allergy/AdvReac Type Severity Reaction Status Date / Time citalopram hydrobromide Allergy Shortness Verified 11/24/23 09:19 [From Celexa] of breath latex Allergy Hives Verified 11/24/23 09:19 codeine AdvReac Vomiting Verified 11/24/23 09:19 Surgical History (Updated 11/24/23 @ 09:[address] Varun Bird, DO) History of cholecystectomy History of hysterectomy History of salpingoophorectomy Previous section S/P dilation and curettage Social History Smoking Status: Never smoker ROS ROS ED Constitutional Constitutional ED: Denies chills or fever(s) Eyes Eyes: Denies blurry vision or change in vision ENT ENT ED: Denies rhinorrhea or sore throat Cardiovascular Cardiovascular: Denies chest pain or palpitations Respiratory/Chest Respiratory/Chest: Denies cough or dyspnea Gastrointestinal Gastrointestinal: Reports abdominal pain and nausea; Denies vomiting Genitourinary Genitourinary ED: Denies dysuria or hematuria Musculoskeletal Musculoskeletal: Denies back pain or neck pain Integumentary Denies abscess or rash Neurologic Neurologic: Denies headache(s) or weakness Allergic/Immunologic Allergic/Immunologic ED: Denies mouth swelling or urticaria EXAM Physical Exam Const Vital Signs: 11/24/23 09:17 Temperature 98 F Temperature Source Temporal Pulse Rate 71 Respiratory Rate 14 Blood Pressure 163/99 H Blood Pressure Mean 120 Pulse Ox 99 Oxygen Delivery Method Room Air Positive well nourished, well developed and obese General Appearance ED: well developed and NAD Nutritional Appearance: obese HEENT Reports moist mucous membranes Neck supple and no JVD Resp normal respiratory effort and clear to auscultation bilaterally Cardio regular rate and regular rhythm GI non-distended Palpation: soft and tender epigastric, LUQ and RUQ; Negative for guarding or rebound tenderness present Back/Spine General Back: CVA tenderness left Neuro CN's II-XII intact bilaterally, moves all extremities and no sensory deficits noted Sensorium / Orientation: alert Motor Exam: strength 5/5 throughout Psych mental status grossly normal MDM MDM MDM Narrative Medical decision making narrative: Differential diagnosis includes bowel obstruction, perforation, ureteral calculus, pyelonephritis, pancreatitis, peptic ulcer disease, duodenal ulcer, colitis, postoperative bleeding, and persistent endometriosis. CBC will be obtained to assess for leukocytosis and anemia. Comprehensive metabolic profile will be obtained to assess for electrolyte abnormality, renal function, and hepatic function. Lipase will be obtained to assess for pancreatitis. Urinalysis will be obtained to assess for urinary tract infection and hematuria. CT scan of the abdomen pelvis will be obtained to assess for bowel obstruction, perforation, and ureteral calculus. Lab Data Attestation: I reviewed the patient's lab results. Lab results narrative: CBC was reviewed and was within normal limits. Comprehensive metabolic profile was reviewed and was within normal limits. Lipase was reviewed and was normal. Urinalysis was reviewed. There is no evidence of urinary tract infection or hematuria. Labs: Laboratory Results - last 24 hr 11/24/23 11/24/23 09:37 10:02 WBC 8.6 RBC 5.01 Hgb 12.7 Hct 40.8 MCV 81.4 MCH 25.3 L MCHC 31.1 L RDW Std Deviation 43.0 RDW Coeff of Ld 14.6 Plt Count 292 MPV 11.1 Immature Gran % (Auto) 0.400 Neut % (Auto) 58.6 Lymph % (Auto) 28.4 Sharkey % (Auto) 8.5 Eos % (Auto) 3.4 Baso % (Auto) 0.7 Absolute Neuts (auto) 5.0 Absolute Lymphs (auto) 2.43 Nucleated RBC % 0 Sodium 140 Potassium 3.9 Chloride 111 H Carbon Dioxide 25.0 Anion Gap 4 L BUN 10 Creatinine 0.70 Estim Creat Clear Calc 121.97 Est GFR (MDRD) Af Amer 122 Est GFR (MDRD) Non-Af 101 BUN/Creatinine Ratio 14.4 Glucose 85 Calcium 9.0 Total Bilirubin 0.30 AST 20 ALT 35 Alkaline Phosphatase 69 Total Protein 7.0 Albumin 3.5 Globulin 3.5 Albumin/Globulin Ratio 1.0 Lipase 40 Urine Color Yellow Urine Clarity Sl. Cloudy Urine pH 5.0 Ur Specific [place] 1.025 Urine Protein Negative Urine Glucose (UA) Normal Urine Ketones Negative Urine Occult Blood 10 H Urine Nitrite Negative Urine Bilirubin Negative Urine Urobilinogen Normal Ur Leukocyte Esterase 25 H Urine RBC 0-5 SEEN Urine WBC 0-5 SEEN Ur Squamous Epith Cells 5-10 SEEN Urine Bacteria 0 SEEN Urine Mucus 0 SEEN Radiography Diagnostic Testing: Clinical Impression(s) from Imaging Studies Abdomen/Pelvis CT 11/24/23 09:47 IMPRESSION: Status post hysterectomy. Small amount of free fluid is seen in the right hemipelvis. Mild hepatomegaly and fatty infiltration of the liver. Findings suggestive of a 1.5 cm x 1.5 cm hemangioma in the right lobe of the liver. Nonobstructive calculus in the upper pole calyx of the right kidney. Electronically Signed: Celestine Dozier MD at 12:31 EST , CT scan of the abdomen pelvis was obtained. There is a small amount of free fluid in the right hemipelvis. There is no acute abnormality noted. This was interpreted by the radiologist and was also independently reviewed by myself. Treatment and Re-Evaluation :: Patient was given IV fluids, morphine, and Zofran. Patient was feeling better on reevaluation. Patient was advised of her findings. Patient was instructed to follow-up with her surgeon in 5 to 7 days for further evaluation. Patient understood and was agreeable with the plan. All questions were answered. Discharge Plan Triage Chief Complaint: Abd Pain ED Provider: Varun Bird Dx/Rx/DC Orders Clinical Impression: Postoperative abdominal pain, Morbid obesity with BMI of 40.0-44.9, adult Instructions: ED Abdominal Pain Unkn Cause Fem Prescriptions: No Action aspirin 81 MG tablet,chewable 81 mg PO DAILY docusate sodium 100 MG capsule 100 mg PO BID PRN PRN (Reason: Constipation) Qty: 60 1RF Primary Care Provider: TESHA ARMSTRONG Referrals: TESHA ARMSTRONG [Other] - 5-7 Days Disposition Disposition: Home, Self Care
--- NOTE | 2023-11-24 09:47 | CT_ITS ---
STUDY: CT ABDOMEN AND PELVIS WITH CONTRAST REASON FOR EXAM: Female, 38 years old. Left lower quadrant pain. Recent total abdominal hysterectomy and exploratory laparotomy. RADIATION DOSAGE (If Supplied By Facility): CTDIvol = ( 23.42 ) mGy, DLP = ( 1262.96 ) mGycm TECHNIQUE: Transaxial images were obtained from the dome of the diaphragm to the symphysis pubis without oral contrast. Oral and amp; IV Gastrografin and amp; 100mL Isovue-300 was administered. Sagittal and coronal images were reconstructed. Individualized dose optimization techniques were used for this CT. COMPARISON: Comparison is made with prior study dated April 29, 2017. FINDINGS: The visualized lung bases are unremarkable. The visualized portions of the heart are within normal limits. There is decreased attenuation of the liver consistent with steatosis. There is a 1.5 cm x 1.5 cm hypodensity in the posterior aspect of the right lobe of liver superiorly with peripheral enhancement suggestive of an hemangioma. Mild hepatomegaly. There are surgical clips in the gallbladder fossa consistent with a prior cholecystectomy. Normal spleen. Normal pancreas. Normal bilateral adrenal glands. Tiny nonobstructive calculus in the upper pole calyx of the right kidney. 1 cm cyst in the posterior midportion of the left kidney. There is a small hiatal hernia. Normal small intestine. There are scattered colonic diverticula consistent with diverticulosis. There is non-visualization of the appendix. Normal abdominal aorta. Normal inferior vena cava. Normal retroperitoneum. Normal urinary bladder. Small amount of free fluid is seen in the right hemipelvis. The patient is status post hysterectomy. Normal abdominal wall. Normal osseous structures. CT/Abdomen/Pelvis WITH Contrast IMPRESSION: Status post hysterectomy. Small amount of free fluid is seen in the right hemipelvis. Mild hepatomegaly and fatty infiltration of the liver. Findings suggestive of a 1.5 cm x 1.5 cm hemangioma in the right lobe of the liver. Nonobstructive calculus in the upper pole calyx of the right kidney. Electronically Signed: Celestine Dozier MD at 12:31 EST ,
[2023-11-24 10:05] LABS: Absolute Lymphocyte Count 2.43 X10^3/uL (0.83-4.51); Basophil# 0.06 X10^3/uL; Basophil% 0.7 % (0-1); Eosinophil# 0.29 X10^3/uL; Eosinophils% 3.4 % (0-5); Hematocrit 40.8 % (37-47); Hemoglobin 12.7 g/dL (12.0-15.0); Lymphocyte # 2.43 X10^3/ul (0.83-4.51); Lymphocyte % 28.4 % (19-41); Mean Corp Hgb Conc 31.1 g/dL (32-36); Mean Corpuscular Hgb 25.3 pg (27.0-32.0); Mean Corpuscular Volume 81.4 fL (81-99); Mean Platelet Vol. 11.1 fl (6.2-12.0); Monocyte# 0.73 X10^3/uL; Monocyte% 8.5 % (0-10); NRBC Flagged by Analyzer 0 % (0-5); Neutrophil # 5.03 X10^3/uL (2.7-7.7); Neutrophil % 58.6 % (47-70); Platelet Count 292 K/mm3 (150-450); RBC Distribution Width CV 14.6 % (11.6-14.6); Red Blood Count 5.01 M/mm3 (4.2-5.4); White Blood Count 8.6 K/mm3 (4.4-11.0)
[2023-11-24 10:12] LABS: Bacteria 0 SEEN /hpf (None Seen); Mucous, Urine 0 SEEN /hpf (<or=2+)
[2023-11-24] MEDS: Ondansetron 4 MG/2 ML Vial IV (10:13)
[2023-11-24] MEDS: 0.9% Normal Saline (1000mL) 1,000 ML 1000 ML IV (10:15)
[2023-11-24] MEDS: Acetaminophen 500 MG Tablet 1000 MG PO (10:15)
[2023-11-24 10:20] LABS: AST(SGOT) 20 U/L (15-37); Alanine Aminotransfer ALT/SGPT 35 U/L (13-56); Albumin, Serum 3.5 g/dL (3.2-5.0); Alkaline Phosphatase 69 U/L (45-117); Anion Gap 4 (5-15); BUN 10 mg/dL (7-18); BUN/Creat Ratio 14.4 RATIO (10-20); Chloride 111 mmol/L (98-107); EST Glomerular Filtration Rate 101 mL/min (>60); Est Glom Filt Rate - Afr Amer 122 mL/min (>60); Estimated Creatinine Clearance 121.97 ml/min; Globulin 3.5 g/dL (2.2-4.2); Glucose 85 mg/dL (74-106); Lipase 40 U/L (13-75); Potassium 3.9 mmol/L (3.5-5.1); Sodium Level 140 mmol/L (136-145)
[2023-11-24 10:51] LABS: Color, Urine Yellow (Yellow); Glucose, Dipstick Normal (Normal); Ketone-Dipstick Negative (Negative); Leukocyte Esterase-Dipstick 25 /ul (Negative); Nitrite-Dipstick Negative (Negative); Occult Blood-Urine 10 /ul (Negative); Protein-Dipstick Negative (Negative); Specific Gravity, Urine 1.025 (1.002-1.030); Urine Bilirubin Dipstick Negative (Negative); Urine Clarity Sl. Cloudy (Clear); Urine Urobilinogen Normal (Normal)
[2023-11-24 11:05] LABS: Red Blood Cells-Urine 0-5 SEEN /hpf (0-5); White Blood Cells 0-5 SEEN /hpf (0-5)
[2023-11-24 11:06] LABS: Squamous Epithelial Cells - UA 5-10 SEEN /hpf (5-10)
[2023-11-24 11:17] VITALS: RESP 18
[2023-11-24 13:00] VITALS: BP 128/77
[2023-11-24 13:24] VITALS: BP 128/77; PULSE 65; RESP 16; TEMP 37.2; O2SAT 95
== END 2023-11-24 13:25 | disposition home or self-care (01) ==
PROVIDERS: Emergency Provider Emergency Medicine; Visit Provider Emergency Medicine
DX: G89.18 Other acute postprocedural pain (principal); E66.01 Morbid (severe) obesity due to excess calories; Z68.41 Body mass index [BMI] 40.0-44.9, adult; R10.9 Unspecified abdominal pain; R11.0 Nausea; J45.909 Unspecified asthma, uncomplicated; Z90.710 Acquired absence of both cervix and uterus
CPT/HCPCS: 74177; 80053; 81001; 83690; 85025; 96361; 96374; 99283; J7030; Q9967; A4216; J2405